=== PATIENT | male | born 1970 | race Caucasian/White ===

== ENCOUNTER 2021-08-10 23:07 | Emergency (ER) | payer OTHER, SELFPAY ==
--- NOTE | ~2021-08-10 | XR_ITS ---
EXAMINATION: XR ankle LT min 3V DATE: 08/10/2021 23:59 INDICATION: Left ankle pain. TECHNIQUE: 4 views of left ankle were obtained. COMPARISON: Left ankle radiographs 11/05/2019 FINDINGS: Bone alignment is normal. No fracture. Joint spaces are well maintained. There is an enthes ophyte at posterior aspect of calcaneal tuberosity. IMPRESSION: 1. No fracture. Reviewed, dictated and finalized at location A. IMPRESSION: 1. No fracture.
--- NOTE | ~2021-08-10 | XR_ITS ---
EXAMINATION: XR chest 1V portable DATE: 08/10/2021 23:34 INDICATION: Shortness of breath. TECHNIQUE: A single frontal view of the chest was obtained. COMPARISON: Chest radiograph 05/05/2012 FINDINGS: The chest demonstrates clear lungs without pneumonia, pleural effusion, or pneumothorax. Th e heart size is normal. IMPRESSION: 1. No acute cardiopulmonary disease. Reviewed, dictated and finalized at location A.
[2021-08-10 23:09] VITALS: BP 164/95; PULSE 89; RESP 28; TEMP 36.6; O2SAT 99
--- NOTE | 2021-08-10 23:13 | ECG_ITS ---
Measurements Intervals [place] Rate: 85 P: 46 KS: 116 QRS: 74 QRSD: 90 T: 74 QT: 371 QTc: 443 Interpretive Statements SINUS RHYTHM WITH SHORT [place] INTERVAL BASELINE ARTIFACT- V4 BORDERLINE ECG Electronically Signed On 08-11-2021 6:00:10 CDT by Taye Lake D.O.
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
[2021-08-10 23:33] VITALS: PULSE 89; RESP 14
[2021-08-10] MEDS: IPRATROPIUM BR 0.02% INH SOLN 0.5 MG/2.5 ML VIAL INHALATION (23:33)
[2021-08-10] MEDS: ALBUTEROL SULFATE NEB 2.5 MG/0.5 ML INH 5 MG INHALATION (23:33)
[2021-08-10 23:43] VITALS: PULSE 83; RESP 16
[2021-08-11 00:12] LABS: Basophils Percent Auto 0.4 % (0.2-1.2); Eosinophils Absolute Auto 0.3 K/mm3 (0-0.3); Eosinophils Percent Auto 3.6 % (0-4.4); Hemoglobin 14.7 g/dL (14.0-18.0); Immature Granulocyte Absolute 0.05 K/mm3 (0.00-0.031); Immature Granulocyte Percent A 0.7 % (0-0.5); Lymphocytes Absolute Auto 2.36 K/mm3 (0.9-3.2); Lymphocytes Percent Auto 34.5 % (18.3-44.2); Mean Corpuscular HGB Conc 33.4 g/dl (32-36); Mean Corpuscular Hemoglobin 32.5 pg (26-34); Mean Corpuscular Volume 97.1 fl (80-100); Mean Platelet Volume 9.4 fl (7.4-10.4); Monocytes Absolute Auto 0.8 K/mm3 (0.1-0.6); Monocytes Percent Auto 11.2 % (2.6-8.5); Neutrophils Absolute Auto 3.4 K/mm3 (1.3-6.7); Neutrophils Percent Auto 49.6 % (45.5-73.1); Platelet Count Result 208 k/mm3 (150-375); Red Blood Count 4.53 M/mm3 (4.6-6.20); Red Cell Distribution Width 12.4 % (11.5-14.5); White Blood Count 6.9 K/mm3 (4.5-10.0)
[2021-08-11 00:15] LABS: Anion Gap 5 mmol/L (8-16); Blood Urea Nitrogen 12 mg/dL (9-20); Calcium 8.8 mg/dL (8.4-10.2); Carbon Dioxide 31 mmol/L (22-30); Chloride 103 mmol/L (98-107); Estimated CRCL calculation 97 ml/min; Estimated Glomerular Filt Rate > 60; Glucose 116 mg/dL (65-110); Potassium 3.5 mmol/L (3.4-5.0); Sodium 139 mmol/L (137-145)
[2021-08-11 00:21] LABS: INR 0.9; Prothrombin Time 11.8 Seconds (11.1-14.7)
[2021-08-11 00:27] LABS: Troponin I < 0.012 ng/mL (0.000-0.034)
[2021-08-11] MEDS: LORazepam INJ (*CRX) 2 MG/ML VIAL 0.5 MG IM (00:31)
[2021-08-11] MEDS: ACETAMINOPHEN 500 MG TABLET 1000 MG PO (00:31)
[2021-08-11 04:14] VITALS: BP 131/97; PULSE 85; RESP 16; TEMP 36.6; O2SAT 98
[2021-08-11 06:08] LABS: Troponin I < 0.012 ng/mL (0.000-0.034)
== END 2021-08-11 04:15 | disposition home or self-care (01) ==
PROVIDERS: Emergency Medicine; Emergency Provider Emergency Medicine
DX: J44.1 Chronic obstructive pulmonary disease with (acute) exacerbation (principal); K21.9 Gastro-esophageal reflux disease without esophagitis; I10 Essential (primary) hypertension; Z86.19 Personal history of other infectious and parasitic diseases; G62.9 Polyneuropathy, unspecified; F17.200 Nicotine dependence, unspecified, uncomplicated; F32.A Depression, unspecified; F20.0 Paranoid schizophrenia; R94.31 Abnormal electrocardiogram [ECG] [EKG]
CPT/HCPCS: 36415; 71045; 73610; 80048; 84484; 85025; 85610; 85730; 93005; 94640; 96372; 99284; A9270; J2060

== ENCOUNTER 2023-01-09 11:32 | Inpatient (IN) | payer OTHER, SELFPAY ==
[2023-01-09] VITALS (7 sets, daily range): BP systolic 127–155; BP diastolic 78–118; PULSE 90–113; RESP 16–20; TEMP 36.3–36.7; O2SAT 94–98
--- NOTE | ~2023-01-09 | US_ITS ---
EXAMINATION: US venous doppler UE RT DATE: 01/09/2023 12:58 INDICATION: Right upper limb pain and swelling TECHNIQUE: Grayscale images without and with compression and Doppler images of the right upper extrem ity veins were obtained. COMPARISON: None. FINDINGS: The right internal jugular vein, subclavian vein, axillary vein, brachial vein, basilic vein, cephali c vein, radial vein, and ulnar vein are patent. Nonspecific 2.5 x 1.7 x 0.9 cm lenticular fluid colle ction within the musculature, likely triceps at the distal aspect of the posterior right upper arm. IMPRESSION: 1. Patent right upper extremity veins. No evidence of venous thrombosis. 2. 2.5 x 1.7 x 0.9 cm lenticular fluid collection within the distal right triceps muscle belly which could represent a small hematoma related to muscle strain, abscess in the appropriate clinical settin g or intramuscular ganglion cyst. Reviewed, dictated and finalized at location B. IMPRESSION: 1. Patent right upper extremity veins. No evidence of venous thrombosis. 2. 2.5 x 1.7 x 0.9 cm lenticular fluid collection within the distal right eddie ps muscle belly which could represent a small hematoma related to muscle strain , abscess in the appropriate clinical setting or intramuscular ganglion cyst.
--- NOTE | ~2023-01-09 | CT_ITS ---
CT scan of the right elbow CLINICAL HISTORY: Swelling, pain, history of infection after elbow injury TECHNIQUE: Following intravenous administration of 100 cc of Omnipaque 350 contrast material, axial i maging of the right upper extremity centered on the elbow was performed. Sagittal and coronal reforma tted images were constructed. Dose reduction technique was used on this scan by utilizing automated e xposure control and iterative reconstruction technique. The dose-length product (DLP) was 526.56 mGy- cm. Findings: No acute fracture or dislocation seen. Osseous alignment about the elbow joint is anatomic. There is a mature, well corticated osseous structure somewhat along the expected course of the dista l biceps tendon, measuring approximately 4.0 x 1.0 x 1.7 cm in size. No elbow joint effusion evident. There is enlargement and heterogeneous appearance of the distal triceps muscle belly, with heterogene ous areas of enhancement throughout. There is a probable small fluid collection within the distal mus acrlos belly measuring approximately 1.7 x 0.9 x 4.5 cm in extent (axial images 52-66, sagittal image 49 for example). There is extensive subcutaneous soft tissue edema about the posterior an lateral aspec ts of the elbow. Remaining musculature otherwise appears essentially unremarkable. IMPRESSION: Enlarged, heterogeneous enhancing appearance of the distal triceps muscle belly with 1.7 x 0.9 x 4.5 cm fluid collection within the distal muscle belly. Given history, findings suggest infectious myosit is with intramuscular abscess. Sterile posttraumatic change is a possible alternative consideration. MR would provide improved soft tissue contrast to delineate the findings, if clinically indicated. 4.0 x 1.0 x 1.7 cm osseous structure stone along the expected course of the distal biceps tendon. Thi s presumably represents mature, chronic myositis ossificans or other chronic heterotopic ossification . Reviewed, dictated and finalized at location M. IMPRESSION: Enlarged, heterogeneous enhancing appearance of the distal triceps muscle belly with 1.7 x 0.9 x 4.5 cm fluid collection within the distal muscle belly. Given history, findings suggest infectious myositis with intramuscular abscess. Ster ile posttraumatic change is a possible alternative consideration. MR would prov miki improved soft tissue contrast to delineate the findings, if clinically olivier cated. 4.0 x 1.0 x 1.7 cm osseous structure stone along the expected course of the dis anel biceps tendon. This presumably represents mature, chronic myositis ossifica ns or other chronic heterotopic ossification.
--- NOTE | ~2023-01-09 | US_ITS ---
EXAMINATION: US guide abscess drainage DATE: 01/09/2023 16:16 INDICATION: Right upper arm abscess. TECHNIQUE: The procedure including the risks, benefits, and alternatives was discussed with the patie nt. Risks discussed included bleeding and infection. The patient understood the risks and agreed to chicho wilson. The skin overlying the right upper arm was prepped and draped in usual sterile fashion. Anes thetic was administered with 1% lidocaine subcutaneously. An 18 gauge needle was then used to aspira te fluid under continuous sonographic guidance. The entry site was cleaned and dressed. There were n o immediate complications. FINDINGS: Ultrasound images demonstrate the needle in a 2.3 x 1.3 x 2.1 fluid collection in the eddie ps muscle. IMPRESSION: 1. Ultrasound-guided needle aspiration of a fluid collection in the right triceps muscle yielding 4 m L bloody fluid. Reviewed, dictated and finalized at location A. IMPRESSION: 1. Ultrasound-guided needle aspiration of a fluid collection in the right eddie ps muscle yielding 4 mL bloody fluid.
[2023-01-09 12:39] LABS: Basophils Percent Auto 0.3 % (0.2-1.2); Eosinophils Absolute Auto 0.1 K/mm3 (0-0.3); Eosinophils Percent Auto 0.9 % (0-4.4); Hematocrit 46.4 % (42.0-52.0); Hemoglobin 15.4 g/dL (14.0-18.0); Immature Granulocyte Absolute 0.04 K/mm3 (0.00-0.031); Immature Granulocyte Percent A 0.4 % (0-0.5); Lymphocytes Percent Auto 15.6 % (18.3-44.2); Mean Corpuscular HGB Conc 33.2 g/dl (32-36); Mean Corpuscular Hemoglobin 31.7 pg (26-34); Mean Corpuscular Volume 95.5 fl (80-100); Mean Platelet Volume 9.2 fl (7.4-10.4); Monocytes Absolute Auto 0.9 K/mm3 (0.1-0.6); Monocytes Percent Auto 8.5 % (2.6-8.5); Neutrophils Absolute Auto 8.1 K/mm3 (1.3-6.7); Neutrophils Percent Auto 74.3 % (45.5-73.1); Platelet Count Result 257 k/mm3 (150-375); Red Blood Count 4.86 M/mm3 (4.6-6.20); Red Cell Distribution Width 12.2 % (11.5-14.5); White Blood Count 10.9 K/mm3 (4.5-10.0)
[2023-01-09 12:46] LABS: Anion Gap 5 mmol/L (8-16); Blood Urea Nitrogen 8 mg/dL (9-20); Calcium 8.6 mg/dL (8.4-10.2); Carbon Dioxide 32 mmol/L (22-30); Chloride 101 mmol/L (98-107); Estimated CRCL calculation 114 ml/min; Estimated Glomerular Filt Rate > 60; Glucose 117 mg/dL (65-110); Potassium 3.9 mmol/L (3.4-5.0); Sodium 138 mmol/L (137-145)
[2023-01-09 12:47] LABS: Lactic Acid Reflex 1.3 mmol/L (0.7-2.0)
[2023-01-09 12:54] LABS: INR 1.1; Prothrombin Time 14.2 Seconds (11.1-14.7)
[2023-01-09 12:55] LABS: Partial Thromboplastin Time 31.2 SECONDS (22.3-36.8)
[2023-01-09] MEDS: MORPHINE SULFATE (*CRX) 4 MG/ML INJ IV PUSH (13:06)
--- NOTE | 2023-01-09 13:11 | ED.EXTPRO ---
HPI - Extremity Problem General Chief complaint: Extremity Problem,Nontraumatic Stated complaint: Right Arm Swelling Time Seen by Provider: 01/09/23 11:57 History of Present Illness HPI Narrative: 52-year-old male with history of elbow injury and subsequent infection requiring antibiotics about a year ago presents with pain and swelling to his right arm that feels similar to the last time when he had an infection. Denies any recent trauma or heavy lifting, has been staying at hotels and unsure if he may have been bitten by something. No fevers or chills. No nausea or vomiting. Also states he might have a piece of rock/glass to bottom of right foot for months. Related Data Home Medications Medication Instructions Recorded Confirmed albuterol sulfate 2.5 mg/3 mL 11/05/19 (0.083 %) solution for nebulization fluticasone 232 mcg-salmeterol 14 inhalation 11/05/19 mcg/actuation breath activated powdr montelukast 10 mg tablet mg 11/05/19 quetiapine 25 mg tablet 11/05/19 sertraline 25 mg tablet mg 11/05/19 Allergies Allergy/AdvReac Type Severity Reaction Status Date / Time aspirin AdvReac Other Verified 01/09/23 12:02 PALAUAN MEASLES INJECTION Allergy Mild Unknown Uncoded 01/09/23 11:32 BEE STINGS Allergy Unknown Hives Uncoded 01/09/23 11:32 POISON AMBROCIO Allergy Unknown Itching Uncoded 01/09/23 11:32 Review of Systems Review of Systems: CONST: No fever. HEENT: No sore throat C/V: No chest pain RESP: No cough GI: No nausea or vomiting : No dysuria. M/S: Pain and swelling to right upper arm SKIN: No rash. NEURO: [No focal numbness or weakness] PSYCH: [No depression] [facility] Past Medical History Medical History Asthma Bilateral ankle fractures COPD (chronic obstructive pulmonary disease) Depression Fracture of lumbar vertebra GERD (gastroesophageal reflux disease) Hepatitis C Hernia HTN (hypertension) Paranoid schizophrenia Peripheral neuropathy Previous known suicide attempt Surgical History Surgical History History of surgery on arm Right hand Social History Social History Smoking status: Current every day smoker Gender identity (if verbalized by the patient): Male Exam Narrative: EXAMINATION OF ORGAN SYSTEMS/BODY AREAS: Constitutional: Vital signs per nursing GENERAL:[No acute distress, non-toxic appearing.] HEAD: Normal with no signs of head trauma. EYES: EOMI, conjunctiva normal ENT: Hearing grossly intact LUNGS: Nonlabored breathing. HEART: [Regular rate and rhythm] ABD: [Soft], [nontender to palpation] EXT: Normal range of motion, swelling and tenderness worse in the right upper arm with some induration. SKIN: [No rashes or lesions.] NEURO: [Alert and oriented x 3. No gross focal sensory or strength deficits.] PSYCH: Normal affect Course Vital Signs Vital signs: Vital Signs Temperature 98.1 F 01/09/23 11:49 Pulse Rate 97 01/09/23 11:49 Respiratory Rate 16 01/09/23 11:49 Blood Pressure 143/82 H 01/09/23 11:49 Pulse Oximetry 98 01/09/23 11:49 Oxygen Delivery Room Air 01/09/23 11:49 Temperature 98.1 F 01/09/23 11:49 Pulse Rate 97 01/09/23 11:49 Respiratory Rate 16 01/09/23 11:49 Blood Pressure 143/82 H 01/09/23 11:49 Pulse Oximetry 98 01/09/23 11:49 Oxygen Delivery Room Air 01/09/23 11:49 MDM - Extremity (Nontraumatic) MDM Narrative Medical decision making narrative: Patient presents here with swelling and pain in his right upper extremity, started a few days ago, denies any trauma, fevers or chills, he has had similar symptoms like this about a year ago when he had an infection in his arm after hurting his elbow. Vital signs stable here, on exam does have tenderness to entire RUE worst upper arm, with some induration, neurovascularly intact. I am concerned for possible in
[2023-01-09] MEDS: HYDROmorphone HCL INJ (*CRX) 1 MG/ML SYR IV PUSH ×2 (16:06→23:39)
--- NOTE | 2023-01-09 16:24 | PM.IMHP ---
H&P: HPI History of Present Illness Date/Time: 01/09/23 16:24 Chief Complaint: Swelling to right arm Narrative: This is a 52-year-old male patient who came to the emergency room with complaints of right elbow swelling. The patient stated that he fell and hurt his arm approximately a year ago but then it healed up. The patient was on antibiotics at that time. The patient presented to the emergency room today with right arm swelling that appears to be similar to his infection that he had 1 year ago. The patient has been staying at a hotel and is unsure if he was bitten by spider. No nausea vomiting. The patient stated he has not tried anything his symptoms. The patient had ultrasound-guided needle aspiration of fluid collection in the right tricuspid muscle yielding 4 mL of bloody fluid. Prior to that his upper extremity CT was read asnlarged, heterogeneous enhancing appearance of the distal triceps muscle belly with 1.7 x 0.9 x 4.5 cm fluid collection within the distal muscle belly. Given history, findings suggest infectious myositis with intramuscular abscess. Sterile posttraumatic change is a possible alternative consideration. MR would provide improved soft tissue contrast to delineate the findings, if clinically indicated. 4.0 x 1.0 x 1.7 cm osseous structure stone along the expected course of the distal biceps tendon. This presumably represents mature, chronic myositis ossificans or other chronic heterotopic ossification. Venous Doppler the upper extremity was read asPatent right upper extremity veins. No evidence of venous thrombosis. 2. 2.5 x 1.7 x 0.9 cm lenticular fluid collection within the distal right triceps muscle belly which could represent a small hematoma related to muscle strain, abscess in the appropriate clinical setting or intramuscular ganglion cyst. The patient was given morphine, Dilaudid and vancomycin in the emergency room. The patient was also complaining of wheezing and was given a nebulizer treatment. The patient is being admitted to observation status on the date of service of 01/09/2023. Review of Systems Review of Systems: All systems reviewed & are unremarkable except as noted in HPI and below Constitutional: Constitutional: Reports as per HPI and Reports no additional constitutional complaints Eyes: Eyes: Reports as per HPI and Reports no additional eye complaints ENT: Reports system reviewed and no additional complaints, except as documented and Reports Normal hearing present Cardiovascular: Cardiovascular: Reports no additional cardiovascular complaints Respiratory: Respiratory: Reports no additional respiratory complaints and Reports no additional respiratory complaints Gastrointestinal: Gastrointestinal: Reports as per HPI and Reports no additional gastrointestinal complaints Musculoskeletal: Musculoskeletal: Reports no additional musculoskeletal complaints Integumentary/Breasts: Skin/Breast: Reports system reviewed and no additional complaints, except as docu and Reports as per HPI Neurologic: Reports system reviewed and no additional complaints, except as documented, Reports as per HPI and Reports Normal hearing present Psychiatric: Psychiatric: Reports no additional psychiatric complaints and Reports as per HPI Endocrine: Endocrine: Reports no additional endocrine complaints Hematologic/Lymphatic: Hematologic/Lymphatic: Reports no additional hematologic/lymphatic complaints Allergic/Immunologic: Allergic/Immunologic: Reports no additional allergic/immunologic complaints [facility] Past Medical History Medical History (Updated 01/09/23 @ 19:34 by Jaye Sandy NP) Asthma Bilateral ankle fractures COPD (chronic obstructive pulmonary disease) Depression Fracture of lumbar vertebra GERD (gastroesophageal reflux disease) H/O retained foreign body fully removed Hepatitis C Hernia HTN (hypertension) Paranoid schizophrenia Peripheral neuropathy Previous known suicide attempt Surgical Hist
--- NOTE | 2023-01-09 16:51 | PCRCNOTE ---
pt refusing UPD stating he has too much going on and is too tired. MD informed of pt refusal.
[2023-01-09] MEDS: NICOTINE (*PBKC) 21 MG PATCH 1 PATCH TRANSDERM (18:07)
--- NOTE | 2023-01-09 18:22 | ADMGEN ---
This patient, Nader Molina, was admitted to [facility] Surg Room 331-01. Patient/family oriented to hospital policies and general routines including ID bracelet, bed and alarms, visiting hours, pain management, procedures, bathroom and other care routines, personal items, smoking policy, room service/diet, and visiting hours. Information on how to activate the Rapid Response Team has been discussed. Patient/Family are encouraged to report perceived risks to care and to ask questions if they do not understand what they are told or what they should do.
[2023-01-09] MEDS: MONTELUKAST SODIUM 10 MG TABLET PO (21:13)
[2023-01-09] MEDS: HYDROcodone/acetaminophen (*CRX) 7.5-325 MG TABLET 1 TAB PO (21:20)
[2023-01-09] MEDS: ALBUTEROL SULFATE NEB 2.5 MG/3 ML INH INHALATION (21:25)
[2023-01-09] MEDS: IPRATROPIUM BR 0.02% INH SOLN 0.5 MG/2.5 ML VIAL INHALATION (21:25)
[2023-01-10] VITALS (13 sets, daily range): BP systolic 116–126; BP diastolic 73–86; PULSE 75–86; RESP 16–22; TEMP 35.6–36.4; O2SAT 96–97; BMI 25.1
[2023-01-10] MEDS: ALBUTEROL SULFATE NEB 2.5 MG/3 ML INH INHALATION ×4 (03:01→21:22)
[2023-01-10] MEDS: IPRATROPIUM BR 0.02% INH SOLN 0.5 MG/2.5 ML VIAL INHALATION ×4 (03:02→21:22)
[2023-01-10] MEDS: HYDROmorphone HCL INJ (*CRX) 1 MG/ML SYR IV PUSH ×5 (04:58→22:10)
[2023-01-10 06:33] LABS: Basophils Percent Auto 0.3 % (0.2-1.2); Eosinophils Absolute Auto 0.2 K/mm3 (0-0.3); Eosinophils Percent Auto 1.3 % (0-4.4); Hematocrit 43.1 % (42.0-52.0); Hemoglobin 14.4 g/dL (14.0-18.0); Immature Granulocyte Absolute 0.04 K/mm3 (0.00-0.031); Immature Granulocyte Percent A 0.3 % (0-0.5); Lymphocytes Absolute Auto 2.33 K/mm3 (0.9-3.2); Lymphocytes Percent Auto 20.1 % (18.3-44.2); Mean Corpuscular HGB Conc 33.4 g/dl (32-36); Mean Corpuscular Hemoglobin 31.1 pg (26-34); Mean Corpuscular Volume 93.1 fl (80-100); Mean Platelet Volume 9.2 fl (7.4-10.4); Monocytes Absolute Auto 1.2 K/mm3 (0.1-0.6); Monocytes Percent Auto 9.9 % (2.6-8.5); Neutrophils Absolute Auto 7.9 K/mm3 (1.3-6.7); Neutrophils Percent Auto 68.1 % (45.5-73.1); Platelet Count Result 223 k/mm3 (150-375); Red Blood Count 4.63 M/mm3 (4.6-6.20); Red Cell Distribution Width 12.2 % (11.5-14.5); White Blood Count 11.6 K/mm3 (4.5-10.0)
[2023-01-10 06:45] LABS: Lactic Acid Reflex 0.9 mmol/L (0.7-2.0)
[2023-01-10 07:23] LABS: Alanine Aminotransferase 51 U/L (6-50); Albumin Level 3.4 g/dL (3.5-5.1); Alkaline Phosphatase 90 U/L (38-126); Anion Gap 8 mmol/L (8-16); Aspartate Amino Transferase 33 U/L (17-59); Bilirubin,Total 0.7 mg/dL (0.2-1.3); Blood Urea Nitrogen 9 mg/dL (9-20); Calcium 8.4 mg/dL (8.4-10.2); Carbon Dioxide 28 mmol/L (22-30); Chloride 99 mmol/L (98-107); Estimated CRCL calculation 114 ml/min; Estimated Glomerular Filt Rate > 60; Glucose 101 mg/dL (65-110); Magnesium 1.9 mg/dL (1.6-2.3); Potassium 3.6 mmol/L (3.4-5.0); Sodium 135 mmol/L (137-145)
[2023-01-10 08:23] LABS: Free T4 Free Thyroxine Reflex 1.32 ng/dL (0.78-2.19)
[2023-01-10] MEDS: SERTRALINE HCL 25 MG TABLET PO (08:43)
[2023-01-10] MEDS: ENOXAPARIN 40 MG/0.4 ML SYRINGE SUB-Q (08:43)
[2023-01-10 09:13] LABS: Total Triiodothyronine (T3) 1.34 NG/ML (0.97-1.69)
[2023-01-10] MEDS: HYDROcodone/acetaminophen (*CRX) 7.5-325 MG TABLET 1 TAB PO ×2 (16:39→20:57)
[2023-01-10 16:50] LABS: Erythrocyte Sedimentation Rate 50 mm/hr (0-20)
--- NOTE | 2023-01-10 16:50 | PM.CNOR ---
Assessment and Plan Assessment and plan (1) Abscess: Code(s): L02.91 - Cutaneous abscess, unspecified Status: Acute Assessment and Plan: Deep infection right upper arm in the triceps area. Small fluid collection noted on the CT scan, and involvement of the triceps musculature. Remote prior injury to the distal biceps tendon with focal heterotopic ossification. The patient gives a vague history of similar symptoms at that time. No recent history of trauma or inciting event. Ultrasound-guided aspirate revealed Gram-positive Staph cocci. Cultures pending. Swelling and pain is extending proximally and distally. Risk of progressive soft tissue infection that may require extensive surgical debridement. I recommend transfer to a tertiary care center. Discussed the case with the hospitalist. History of Present Illness HPI Consult date: 01/10/23 Chief complaint: RUE INFECTION Narrative: 52-year-old male complains of acute pain in the right arm. Admitted through the emergency room after aspiration. CT scan showed fluid collection and likely infection in the triceps muscle. History of biceps tendon injury. CT scan did show myositis ossificans along the tract of the distal biceps tendon. Review of Systems Review of Systems: All systems reviewed & are unremarkable except as noted in HPI and below PMFSH Past Medical History Medical History Asthma Bilateral ankle fractures COPD (chronic obstructive pulmonary disease) Depression Fracture of lumbar vertebra GERD (gastroesophageal reflux disease) H/O retained foreign body fully removed Hepatitis C Hernia HTN (hypertension) Paranoid schizophrenia Peripheral neuropathy Previous known suicide attempt Surgical History Surgical History History of surgery on arm Right hand Family History Family History Mother Heart disease Acute myocardial infarction Kidney failure Emphysema lung Social History Social History Social History: He continues to smoke 1 pack a cigarettes per day. no alcohol. Occasional marijuana . He currently lives in of hotel . He is single and has twin daughters. Code status full code Smoking status: Current every day smoker Substance use: current Substance use type: marijuana Lack of Transportation: YES Lack of Food: Often True Current Housing: I Do Not Have Housing Concerned About Future Housing: YES Difficulty Paying Gas/Electric Bills: YES Difficulty Paying for Meds: YES Currently Unemployed: YES Education: Decline to Answer Difficulty w/ Childcare or Family Care: No Gender identity (if verbalized by the patient): Male Spiritual care concerns: No Meds Home Medications and Allergies Home Medications Medication Instructions Recorded Confirmed Type albuterol sulfate 2.5 mg/3 mL 2.5 mg continuous nebulization QID 11/05/19 01/09/23 History (0.083 %) solution for nebulization fluticasone 232 mcg-salmeterol 14 2 inh inhalation BID 11/05/19 01/09/23 History mcg/actuation breath activated powdr montelukast 10 mg tablet 10 mg PO HS 11/05/19 01/09/23 History sertraline 25 mg tablet 25 mg PO DAILY 11/05/19 01/09/23 History albuterol sulfate 90 mcg/actuation 1 inhalation inhalation Q4-6H PRN 08/11/21 01/09/23 Rx breath activated powder shortness of breath or wheezing #1 inhaler,sensor ea Allergies Allergy/AdvReac Type Severity Reaction Status Date / Time aspirin AdvReac Other Verified 01/09/23 19:04 COMORAN MEASLES INJECTION Allergy Mild Unknown Uncoded 01/09/23 11:32 BEE STINGS Allergy Unknown Hives Uncoded 01/09/23 11:32 POISON AMBROCIO Allergy Unknown Itching Uncoded 01/09/23 11:32 Vital Signs Vital Signs - 24 hr 01/09/23 19:00 01/09/23 21:26 01/09
[2023-01-10 17:02] LABS: CRP 16.7 mg/dL (<1.0)
--- NOTE | 2023-01-10 17:54 | PM.IMPN ---
Progress Note: A&P Assessment and Plan (1) Abscess: Code(s): L02.91 - Cutaneous abscess, unspecified Status: Acute Assessment and Plan: The fluid collection was drained with a needle aspiration as per ultrasound and obtain 4 mL of blood. No abscess was noted on the MRI. Continue with vancomycin and broaden the coverage with cefepime. May consider surgical consult-Dr. Carnes examined the patient and MRI and feels this is more likely a cellulitis and is not in compartment syndrome at this time but is headed that direction. He will be out of town starting [facility] and the general surgery team report they do not typically manage upper extremity infections. Suggest transfer to orthopedic surgeon at a larger facility. Keep affected extremity elevated to reduce swelling. Monitor CRP and ESR levels. Initial ESR-50, CRP-16.7 Blood cultures pending Tailor antibiotics according to culture and sensitivities The [facility] was [facility] but did not say if he had MRSA in the past. Pt on the waitlist with [facility] (Dr. North accepting orthopedic surgeon and Dr. Macias accepting hospitalist) and [facility] (Dr. Holguin accepting hospitalist at [facility]). (2) COPD (chronic obstructive pulmonary disease): Code(s): J44.9 - Chronic obstructive pulmonary disease, unspecified Status: Acute Assessment and Plan: Continue with nebulizer treatments Patient was encouraged to stop smoking. The patient was given a nicotine patch Continue with Singulair (3) Depression: Code(s): F32.9 - Major depressive disorder, single episode, unspecified Status: Acute Assessment and Plan: Continue with Zoloft (4) HTN (hypertension): Code(s): I10 - Essential (primary) hypertension Status: Acute Assessment and Plan: Patient stated he no longer takes any blood pressure medication P.r.n. hydralazine (5) Paranoid schizophrenia: Code(s): F20.0 - Paranoid schizophrenia Status: Acute Assessment and Plan: Continue with home medications Subjective Date/time seen: 01/10/23 1120 Review of Systems Constitutional: Constitutional: Reports as per HPI Eyes: Eyes: Reports as per HPI and Reports no additional eye complaints ENT: Reports system reviewed and no additional complaints, except as documented Cardiovascular: Comments: Pt denies any CP, palpitations, lightheadedness, or edema Respiratory: Comments: Pt denies any SOB. c/o occasional cough that is nonproductive and his normal. States he is a current every day smoker. Gastrointestinal: Comments: Denies any nausea, vomiting, constipation, diarrhea, melena, or hematochezia or abdominal pain. Genitourinary: Comments: Denies any urinary frequency or dysuria. Denies any suprapubic discomfort or flank pain. Musculoskeletal: Musculoskeletal: Reports no additional musculoskeletal complaints and Reports as per HPI Comments: c/o pain 8/ to right upper arm and relates that today he isn't able to put his ponytail zamora in his hair because he cannot bend his elbow enough. Denies any numbness or tingling to the right hand or fingers. States he can feel the swelling going up into his right axilla. Neurologic: Reports system reviewed and no additional complaints, except as documented Psychiatric: Psychiatric: Reports no additional psychiatric complaints and Reports as per HPI Exam Const: General: no acute distress and uncomfortable Other: Pt is alert and oriented x 4 and appears in no acute distress, but does appear uncomfortable. HENMT: Face/Nose/Sinus: Normal nares present Mouth: Yes moist mucous membranes Eyes: General: appearance normal, both eyes and all related structures Sclera: sclerae normal Pupils: Equal, round and reactive pupils present EOM: EOMs intact bilaterally Neck: Neck: supple and no JVD Resp: Effort & Inspection: normal respiratory effort Auscultation: wheezes ex
[2023-01-10 18:01] LABS: SARS-CoV-2 RNA PCR Negative
[2023-01-10] MEDS: MONTELUKAST SODIUM 10 MG TABLET PO (20:58)
[2023-01-11] VITALS (9 sets, daily range): BP systolic 115–126; BP diastolic 69–76; PULSE 71–83; RESP 14–20; TEMP 35.8–36.2; O2SAT 94–98
[2023-01-11] MEDS: ALBUTEROL SULFATE NEB 2.5 MG/3 ML INH INHALATION ×3 (02:35→20:16)
[2023-01-11] MEDS: IPRATROPIUM BR 0.02% INH SOLN 0.5 MG/2.5 ML VIAL INHALATION ×3 (02:35→20:16)
[2023-01-11] MEDS: HYDROmorphone HCL INJ (*CRX) 1 MG/ML SYR IV PUSH ×6 (02:54→21:05)
[2023-01-11 03:21] LABS: Basophils Percent Auto 0.2 % (0.2-1.2); Eosinophils Absolute Auto 0.2 K/mm3 (0-0.3); Eosinophils Percent Auto 1.9 % (0-4.4); Hematocrit 43.2 % (42.0-52.0); Hemoglobin 14.6 g/dL (14.0-18.0); Immature Granulocyte Absolute 0.04 K/mm3 (0.00-0.031); Immature Granulocyte Percent A 0.4 % (0-0.5); Lymphocytes Absolute Auto 2.23 K/mm3 (0.9-3.2); Mean Corpuscular HGB Conc 33.8 g/dl (32-36); Mean Corpuscular Hemoglobin 31.4 pg (26-34); Mean Corpuscular Volume 92.9 fl (80-100); Monocytes Absolute Auto 0.7 K/mm3 (0.1-0.6); Monocytes Percent Auto 8.3 % (2.6-8.5); Neutrophils Absolute Auto 5.7 K/mm3 (1.3-6.7); Neutrophils Percent Auto 64.2 % (45.5-73.1); Platelet Count Result 264 k/mm3 (150-375); Red Blood Count 4.65 M/mm3 (4.6-6.20); White Blood Count 8.9 K/mm3 (4.5-10.0)
[2023-01-11 04:08] LABS: Anion Gap 4 mmol/L (8-16); Blood Urea Nitrogen 12 mg/dL (9-20); CRP 15.9 mg/dL (<1.0); Calcium 8.8 mg/dL (8.4-10.2); Carbon Dioxide 32 mmol/L (22-30); Chloride 99 mmol/L (98-107); Estimated CRCL calculation 99 ml/min; Estimated Glomerular Filt Rate > 60; Glucose 104 mg/dL (65-110); Potassium 3.8 mmol/L (3.4-5.0); Sodium 135 mmol/L (137-145)
[2023-01-11 04:17] LABS: Vancomycin Trough 8.5 ug/mL (10.0-20.0)
[2023-01-11 04:39] LABS: Erythrocyte Sedimentation Rate 38 mm/hr (0-20)
[2023-01-11] MEDS: HYDROcodone/acetaminophen (*CRX) 7.5-325 MG TABLET 1 TAB PO ×3 (05:23→22:32)
[2023-01-11] MEDS: NICOTINE (*PBKC) 21 MG PATCH 1 PATCH TRANSDERM (09:09)
[2023-01-11] MEDS: SERTRALINE HCL 25 MG TABLET PO (09:09)
[2023-01-11] MEDS: ENOXAPARIN 40 MG/0.4 ML SYRINGE SUB-Q (09:09)
--- NOTE | 2023-01-11 17:49 | PM.IMPN ---
Progress Note: A&P Assessment and Plan (1) Abscess: Code(s): L02.91 - Cutaneous abscess, unspecified Status: Acute Assessment and Plan: The fluid collection was drained with a needle aspiration as per ultrasound and obtain 4 mL of blood. No abscess was noted on the MRI. Continue with vancomycin and broaden the coverage with cefepime. May consider surgical consult-Dr. Carnes examined the patient and MRI and feels this is more likely a cellulitis and is not in compartment syndrome at this time but is headed that direction. He will be out of town starting [facility] and the general surgery team report they do not typically manage upper extremity infections. Suggest transfer to orthopedic surgeon at a larger facility. Keep affected extremity elevated to reduce swelling. Monitor CRP and ESR levels. Initial ESR-was 50 yesterday and down to 38 today, CRP-was 16.7 yesterday and down to 15.9 today. Covid swab negative Blood cultures pending Tailor antibiotics according to culture and sensitivities-Returned showing heavy growth of staph aureus. Should have ample coverage with current antibiotics and can downgrade once symptoms start to improve. The patient was recently [facility] from [facility] but did not say if he had MRSA in the past. Pt on the waitlist with [facility] (Dr. North accepting orthopedic surgeon and Dr. Macias accepting hospitalist) and [facility] (Dr. Holguin accepting hospitalist at [facility]). Both [facility] and [facility] have called each shift for update on patient status and reconfirm he is on the wait list but no beds available yet. (2) COPD (chronic obstructive pulmonary disease): Code(s): J44.9 - Chronic obstructive pulmonary disease, unspecified Status: Acute Assessment and Plan: Continue with nebulizer treatments Patient was encouraged to stop smoking. The patient was given a nicotine patch Continue with Singulair (3) Depression: Code(s): F32.9 - Major depressive disorder, single episode, unspecified Status: Acute Assessment and Plan: Continue with Zoloft (4) HTN (hypertension): Code(s): I10 - Essential (primary) hypertension Status: Acute Assessment and Plan: Patient stated he no longer takes any blood pressure medication P.r.n. hydralazine (5) Paranoid schizophrenia: Code(s): F20.0 - Paranoid schizophrenia Status: Acute Assessment and Plan: Continue with home medications Subjective Date/time seen: 01/11/23 4675 Review of Systems Review of Systems: All systems reviewed & are unremarkable except as noted in HPI and below Musculoskeletal: Musculoskeletal: Reports arthralgias (right elbow) and Reports stiffness (generalized upper back/neck) Exam Const: General: no acute distress and uncomfortable Other: Pt is alert and oriented x 4 and appears in no acute distress, but does appear uncomfortable. HENMT: Face/Nose/Sinus: Normal nares present Mouth: Yes moist mucous membranes Eyes: General: appearance normal, both eyes and all related structures Sclera: sclerae normal Pupils: Equal, round and reactive pupils present EOM: EOMs intact bilaterally Neck: Neck: supple and no JVD Resp: Effort & Inspection: normal respiratory effort Auscultation: wheezes expiratory wheezes, inspiratory wheezes and scattered wheezes Other: Pt appears in no acute respiratory distress. Able to speak in complete sentences without difficulty. No use of accessory muscles noted. Lung sounds reveal inspiratory/expiratory wheezing scattered. Cardio: Rate: regular rate Rhythm: regular rhythm Other: No heart murmur, gallop or rub appreciated GI: Other: Abdomen soft, non distended, nontender to palpation with bowel sounds present x 4 quadrants. Skin: General skin exam: normal color, no rashes or lesions noted and erythema (Right posterior upper arm mild erythema. Edema mid forearm to mid upper arm) Neuro: Cranial nerves: Yes Equal
[2023-01-11] MEDS: MONTELUKAST SODIUM 10 MG TABLET PO (21:05)
[2023-01-12] MEDS: HYDROmorphone HCL INJ (*CRX) 1 MG/ML SYR IV PUSH ×7 (00:27→23:17)
[2023-01-12 01:01] VITALS: PULSE 75; RESP 16
[2023-01-12] MEDS: ALBUTEROL SULFATE NEB 2.5 MG/3 ML INH INHALATION ×3 (01:04→09:30)
[2023-01-12] MEDS: IPRATROPIUM BR 0.02% INH SOLN 0.5 MG/2.5 ML VIAL INHALATION ×3 (01:04→09:30)
[2023-01-12 01:12] VITALS: PULSE 69; RESP 16
[2023-01-12] MEDS: HYDROcodone/acetaminophen (*CRX) 7.5-325 MG TABLET 1 TAB PO ×3 (03:28→20:30)
[2023-01-12 05:39] LABS: Basophils Percent Auto 0.4 % (0.2-1.2); Eosinophils Absolute Auto 0.3 K/mm3 (0-0.3); Hemoglobin 13.5 g/dL (14.0-18.0); Immature Granulocyte Absolute 0.05 K/mm3 (0.00-0.031); Immature Granulocyte Percent A 0.7 % (0-0.5); Lymphocytes Absolute Auto 1.66 K/mm3 (0.9-3.2); Lymphocytes Percent Auto 23.7 % (18.3-44.2); Mean Corpuscular HGB Conc 33.8 g/dl (32-36); Mean Corpuscular Hemoglobin 31.3 pg (26-34); Mean Corpuscular Volume 92.8 fl (80-100); Mean Platelet Volume 8.9 fl (7.4-10.4); Monocytes Absolute Auto 0.7 K/mm3 (0.1-0.6); Monocytes Percent Auto 9.4 % (2.6-8.5); Neutrophils Absolute Auto 4.3 K/mm3 (1.3-6.7); Neutrophils Percent Auto 61.8 % (45.5-73.1); Platelet Count Result 251 k/mm3 (150-375); Red Blood Count 4.31 M/mm3 (4.6-6.20)
[2023-01-12 06:00] VITALS: BP 105/66; PULSE 72; RESP 16; TEMP 35.9; O2SAT 95
[2023-01-12 06:06] LABS: Anion Gap 4 mmol/L (8-16); Blood Urea Nitrogen 9 mg/dL (9-20); CRP 7.9 mg/dL (<1.0); Calcium 8.8 mg/dL (8.4-10.2); Carbon Dioxide 30 mmol/L (22-30); Chloride 101 mmol/L (98-107); Estimated CRCL calculation 99 ml/min; Estimated Glomerular Filt Rate > 60; Glucose 111 mg/dL (65-110); Potassium 4.2 mmol/L (3.4-5.0); Sodium 135 mmol/L (137-145)
[2023-01-12 06:21] LABS: Vancomycin Trough 16.8 ug/mL (10.0-20.0)
[2023-01-12 09:03] VITALS: PULSE 68; RESP 18; O2SAT 95
[2023-01-12] MEDS: ENOXAPARIN 40 MG/0.4 ML SYRINGE SUB-Q (09:03)
[2023-01-12] MEDS: NICOTINE (*PBKC) 21 MG PATCH 1 PATCH TRANSDERM (09:04)
[2023-01-12] MEDS: SERTRALINE HCL 25 MG TABLET PO (09:05)
[2023-01-12 11:31] LABS: Erythrocyte Sedimentation Rate 54 mm/hr (0-20)
[2023-01-12] MEDS: OXACILLIN SODIUM 2 GM in SODIUM CHLORIDE 0.9% IV 100 ML IVPB ×3 (12:17→23:16)
[2023-01-12 14:00] VITALS: BP 127/75; PULSE 89; RESP 16; TEMP 36.4; O2SAT 93
--- NOTE | 2023-01-12 16:55 | PCRCNOTE ---
Window of time for administration has passed. See next scheduled administration.
--- NOTE | 2023-01-12 17:21 | PM.IMPN ---
Progress Note: A&P Assessment and Plan (1) Abscess: Code(s): L02.91 - Cutaneous abscess, unspecified Status: Acute Assessment and Plan: The fluid collection was drained with a needle aspiration as per ultrasound and obtain 4 mL of blood. No abscess was noted on the MRI. Continue with vancomycin and broaden the coverage with cefepime. May consider surgical consult-Dr. Carnes examined the patient and MRI and feels this is more likely a cellulitis and is not in compartment syndrome at this time but is headed that direction. He will be out of town starting [facility] and the general surgery team report they do not typically manage upper extremity infections. Suggest transfer to orthopedic surgeon at a larger facility. Keep affected extremity elevated to reduce swelling. Monitor CRP and ESR levels. Initial ESR-was 50 yesterday and down to 38 today, CRP-was 16.7 yesterday and down to 15.9 today. Covid swab negative Blood cultures pending Tailor antibiotics according to culture and sensitivities-Returned showing heavy growth of staph aureus. Should have ample coverage with current antibiotics and can downgrade once symptoms start to improve. The patient was recently released from [facility] but did not say if he had MRSA in the past. Pt on the waitlist with [facility] (Dr. North accepting orthopedic surgeon and Dr. Macias accepting hospitalist) and [facility] (Dr. Holguin accepting hospitalist at [facility]). Both [facility] and [facility] have called each shift for update on patient status and reconfirm he is on the wait list but no beds available yet. (2) COPD (chronic obstructive pulmonary disease): Code(s): J44.9 - Chronic obstructive pulmonary disease, unspecified Status: Acute Assessment and Plan: Continue with nebulizer treatments Patient was encouraged to stop smoking. The patient was given a nicotine patch Continue with Singulair (3) Depression: Code(s): F32.9 - Major depressive disorder, single episode, unspecified Status: Acute Assessment and Plan: Continue with Zoloft (4) HTN (hypertension): Code(s): I10 - Essential (primary) hypertension Status: Acute Assessment and Plan: Patient stated he no longer takes any blood pressure medication P.r.n. hydralazine (5) Paranoid schizophrenia: Code(s): F20.0 - Paranoid schizophrenia Status: Acute Assessment and Plan: Continue with home medications Subjective Date/time seen: 01/12/23 17:21 Interval history: 52yo male with HTN, schizophrenia, HepC, COPD and hx of rt elbow injury here for right arm pain and found to have right triceps intramuscular abscess. Objective Data Vital Signs Vital Signs: Vital Signs - 24 hr 01/11/23 20:13 01/11/23 20:13 01/11/23 22:00 Temperature 96.4 F L Pulse Rate 74 82 Respiratory Rate 20 14 Blood Pressure 115/69 Pulse Oximetry 94 95 Oxygen Delivery Room Air 01/11/23 20:00 01/12/23 01:01 01/12/23 01:12 Temperature Pulse Rate 75 69 Respiratory Rate 16 16 Blood Pressure Pulse Oximetry Oxygen Delivery Room Air 01/12/23 06:00 01/12/23 09:03 01/12/23 09:03 Temperature 96.7 F L Pulse Rate 72 68 Respiratory Rate 16 18 Blood Pressure 105/66 Pulse Oximetry 95 95 Oxygen Delivery Room Air 01/12/23 09:05 01/12/23 14:00 Temperature 97.5 F L Pulse Rate 89 Respiratory Rate 16 Blood Pressure 127/75 Pulse Oximetry 93 Oxygen Delivery Room Air Intake/Output Intake/Output: Intake & Output 01/09/23 01/10/23 01/11/23 01/12/23 23:59 23:59 23:59 23:59 Intake Total 1700 2600 1140 Output Total 0 Balance 1700 2600 1140 Meds/Results Medications: Active Medications Generic Name Dose Route Start Last Admin Trade Name Freq PRN Reason Stop Dose Admin Hydrocodone Bitart/Acetaminophen 1 tab 01/09/23 19:57 01/12/23 09:16 Hydrocodone/Acetaminophen (*Crx) 7.5-325 Mg Tablet PO 1 tab Q4H P
--- NOTE | 2023-01-12 18:11 | PM.TDS ---
Transfer Discharge Sum: Prov Provider Date of admission: 01/11/23 09:45 Primary care physician: BRYAN GONCALVES Admitting clinician: Neymar Anthony MD Consults: 01/09/23 15:13 Consult to Physician Routine Comment: Consulting Provider: Roanld Conway Reason for consultation: PALLAVI funk Has provider been notified: Yes DS: Admitting Diagnosis Discharge Date 01/12/23 Admitting Diagnosis Arm pain DS: Discharge Diagnosis Discharge Diagnosis (1) Abscess: Code(s): L02.91 - Cutaneous abscess, unspecified Status: Acute (2) COPD (chronic obstructive pulmonary disease): Code(s): J44.9 - Chronic obstructive pulmonary disease, unspecified Status: Acute (3) Depression: Code(s): F32.9 - Major depressive disorder, single episode, unspecified Status: Acute (4) HTN (hypertension): Code(s): I10 - Essential (primary) hypertension Status: Acute (5) Paranoid schizophrenia: Code(s): F20.0 - Paranoid schizophrenia Status: Acute (6) Myositis: Code(s): M60.9 - Myositis, unspecified Status: Acute Transfer Discharge Sum: Med Medications Active and Home Medications: Home Medications albuterol sulfate 2.5 mg/3 mL (0.083 %) solution for nebulization 2.5 mg continuous nebulization QID 11/05/19 [History Confirmed 01/09/23] fluticasone 232 mcg-salmeterol 14 mcg/actuation breath activated powdr 2 inh inhalation BID 11/05/19 [History Confirmed 01/09/23] montelukast 10 mg tablet 10 mg PO HS 11/05/19 [History Confirmed 01/09/23] sertraline 25 mg tablet 25 mg PO DAILY 11/05/19 [History Confirmed 01/09/23] albuterol sulfate 90 mcg/actuation breath activated powder inhaler,sensor 1 inhalation inhalation Q4-6H PRN shortness of breath or wheezing #1 ea 08/11/21 [Rx Confirmed 01/09/23] Active Medications Hydrocodone Bitart/Acetaminophen (Hydrocodone/Acetaminophen (*Crx) 7.5-325 Mg Tablet) 1 tab PO Q4H PRN PRN Reason: Pain Rated 4-6 Last Admin: 03/18/23 09:16 Dose: 1 tab Albuterol (Albuterol Sulfate Neb 2.5 Mg/3 Ml Inh) 2.5 mg INHALATION Q6HRT [facility] Last Admin: 01/12/23 16:53 Dose: Not Given Enoxaparin Sodium (Enoxaparin 40 Mg/0.4 Ml Syringe) 40 mg SUB-Q DAILY [facility] Last Admin: 01/12/23 09:03 Dose: 40 mg Hydralazine HCl (Hydralazine Hcl 20 Mg/Ml Vial) 10 mg IV PUSH Q8H PRN PRN Reason: Blood Pressure - High Hydromorphone HCl (Hydromorphone Hcl Inj (*Crx) 1 Mg/Ml Syr) 1 mg IV PUSH Q3H PRN PRN Reason: Pain Rated 7-10 Last Admin: 01/12/23 16:50 Dose: 1 mg Oxacillin Sodium 2 gm/ Sodium (Chloride) 100 mls @ 200 mls/hr IVPB Q4HR [facility] Last Admin: 01/12/23 16:50 Dose: 200 mls/hr Ipratropium [place] (Ipratropium Br 0.02% Inh Soln 0.5 Mg/2.5 Ml Vial) 0.5 mg INHALATION Q6HRT [facility] Last Admin: 01/12/23 16:53 Dose: Not Given Montelukast Sodium (Montelukast Sodium 10 Mg Tablet) 10 mg PO HS [facility] Last Admin: 01/11/23 21:05 Dose: 10 mg Nicotine (Nicotine (*Pbkc) 21 Mg Patch) 1 patch TRANSDERM QAM [facility] Last Admin: 01/12/23 09:04 Dose: 1 patch Sertraline HCl (Sertraline Hcl 25 Mg Tablet) 25 mg PO DAILY [facility] Last Admin: 01/12/23 09:05 Dose: 25 mg Transfer Discharge Sum: Hosp Hospital Course Hospital course: 52yo male with HTN, schizophrenia, HepC, COPD and hx of rt elbow injury here for right arm pain and found to have right triceps intramuscular abscess. Please see H&P for details. RUE US showing no DVT but showed a 2.5cm fluid collection within the right triceps muscle. A CT Rt UE showing a 4.5cm heterogeneous fluid collection in the distal triceps muscle. 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 The patient had US guided needle aspiration with removal of 4 mL of bloody fluid. No MRI obtained. Started on vancomycin and broaden the coverage with cefepime. Ortho was consulted. No fevers. WBC 11.6 before normalizing. CRP to 54. Abscess culture and sensitivities returned showing
[2023-01-12] MEDS: MONTELUKAST SODIUM 10 MG TABLET PO (20:34)
[2023-01-12 22:00] VITALS: BP 135/83; PULSE 77; RESP 14; TEMP 35.7; O2SAT 96
[2023-01-13 00:14] VITALS: O2SAT 97
== END 2023-01-13 01:00 | disposition short-term general hospital (02) | DRG 317 ==
LOC: ANHED 16:03 → ANH2MED 17:28 → ANH3MEDSUR 17:48
PROVIDERS: Nurse Practitioner; Nurse Practitioner Family; Admitting Provider Internal Medicine; Emergency Provider Emergency Medicine; Visit Provider Internal Medicine
DX: M60.021 Infective myositis, right upper arm (principal); B95.61 Methicillin susceptible Staphylococcus aureus infection as the cause of diseases classified elsewhere; F20.0 Paranoid schizophrenia; Z20.822 Contact with and (suspected) exposure to COVID-19; F32.A Depression, unspecified; F32.9 Major depressive disorder, single episode, unspecified; J44.9 Chronic obstructive pulmonary disease, unspecified; I10 Essential (primary) hypertension; K21.9 Gastro-esophageal reflux disease without esophagitis; G62.9 Polyneuropathy, unspecified; Z86.19 Personal history of other infectious and parasitic diseases
CPT/HCPCS: 10160; 36415; 73201; 76942; 80048; 80053; 80202; 83605; 83735; 84439; 84443; 84480; 85025; 85610; 85652; 85730; 86140; 87040; 87070; 87075; 87147; 87181; 87186; 87205; 93971; 94640; 96365; 96366; 96367; 96372; 96374; 96375; 96376; 99285; A9270; G0378; J0692; J1170; J1650; J2270; J2700; J3370; Q9967; U0003; U0005

== ENCOUNTER 2023-02-01 08:01 | Emergency (ER) | payer OTHER, SELFPAY ==
--- NOTE | ~2023-02-01 | XR_ITS ---
EXAMINATION: XR ankle RT min 3V DATE: 02/01/2023 08:29 INDICATION: Right ankle pain post injury 2 days prior TECHNIQUE: Anteroposterior, oblique, mortise, and lateral views of the right ankle were obtained. COMPARISON: None. FINDINGS: Nondisplaced oblique fracture through the distal fibula with a fracture plane exiting medially at the level of the tibiotalar joint. No other fracture identified. Specifically the medial and posterior malleoli as well as the talar dome are intact. Ankle mortise remains congruent. Soft tissue swelling overlying the lateral malleolus. IMPRESSION: 1. Nondisplaced oblique fracture of the distal left fibula consistent with a Dominguez type B injury altagracia tere. Reviewed, dictated and finalized at location A. IMPRESSION: 1. Nondisplaced oblique fracture of the distal left fibula consistent with a We tony type B injury pattern.
[2023-02-01 08:06] VITALS: BP 142/105; PULSE 106; RESP 16; TEMP 36.8; O2SAT 98
[2023-02-01] MEDS: HYDROcodone/acetaminophen (*CRX) 5-325 MG TABLET 1 TAB PO (09:03)
[2023-02-01] MEDS: CYCLOBENZAPRINE HCL 10 MG TABLET PO (09:03)
--- NOTE | 2023-02-01 09:03 | ED.GENADULT ---
HPI - General Adult General Chief complaint: Extremity Injury, Lower Stated complaint: Ankle Injury Time Seen by Provider: 02/01/23 08:51 History of Present Illness HPI narrative: 52-year-old male presented the emergency department for evaluation of an injury to his right ankle. Patient states on Saturday he tripped over a curb. Patient states he has had difficulty with weightbearing. Patient denies any other pain or injury. Related Data Home Medications Medication Instructions Recorded Confirmed albuterol sulfate 2.5 mg/3 mL 2.5 mg continuous nebulization QID 11/05/19 01/09/23 (0.083 %) solution for nebulization fluticasone 232 mcg-salmeterol 14 2 inh inhalation BID 11/05/19 01/09/23 mcg/actuation breath activated powdr montelukast 10 mg tablet 10 mg PO HS 11/05/19 01/09/23 sertraline 25 mg tablet 25 mg PO DAILY 11/05/19 01/09/23 Allergies Allergy/AdvReac Type Severity Reaction Status Date / Time aspirin AdvReac Other Verified 02/01/23 08:33 SCOTTISH MEASLES INJECTION Allergy Mild Unknown Uncoded 02/01/23 08:33 BEE STINGS Allergy Unknown Hives Uncoded 02/01/23 08:33 POISON AMBROCIO Allergy Unknown Itching Uncoded 02/01/23 08:33 Review of Systems Review of Systems: All systems reviewed & are unremarkable except as noted in HPI and below PMFSH Past Medical History Medical History Asthma Bilateral ankle fractures COPD (chronic obstructive pulmonary disease) Depression Fracture of lumbar vertebra GERD (gastroesophageal reflux disease) H/O retained foreign body fully removed Hepatitis C Hernia HTN (hypertension) Paranoid schizophrenia Peripheral neuropathy Previous known suicide attempt Surgical History Surgical History History of surgery on arm Right hand Family History Family History Mother Heart disease Acute myocardial infarction Kidney failure Emphysema lung Social History Social History Social History: He continues to smoke 1 pack a cigarettes per day. no alcohol. Occasional marijuana . He currently lives in of the [facility] . He is single and has twin daughters. Code status full code Smoking status: Current every day smoker Substance use: current Substance use type: marijuana Lack of Transportation: YES Lack of Food: Often True Current Housing: I Do Not Have Housing Concerned About Future Housing: YES Difficulty Paying Gas/Electric Bills: YES Difficulty Paying for Meds: YES Currently Unemployed: YES Education: Decline to Answer Difficulty w/ Childcare or Family Care: No Gender identity (if verbalized by the patient): Male Spiritual care concerns: No Exam Narrative: APPEARANCE: Well appearing, no pain, no distress, well-nourished. HEAD: normocephalic, atraumatic. EYES: PERRLA/EOMI, conjunctivae clear. NOSE: Normal no drainage NECK: Supple. No adenopathy, no masses. RESPIRATORY: Airway patent, respirations nonlabored. Clear to auscultation bilaterally, no rales, rhonchi, wheezing. CARDIOVASCULAR: Regular rate and rhythm without murmurs rubs or gallops. ABDOMINAL: Soft, nontender, nondistended, normal bowel sounds MUSCULOSKELETAL: Moves all extremities. Right ankle has localized edema and ecchymosis. Tender to palpation. NEURO: Alert. Cranial nerves II through XII intact. SKIN: Warm, dry. Normal Color Course Course Emergency Course: 52-year-old male presented to ED for right ankle pain. Patient does have a fibular fracture. Patient was updated on results of the x-rays. Patient was placed in a posterior short leg splint and provided crutches for nonweightbearing. Patient was treated with [place] and Flexeril for pain control. Patient states he is unable to weight-bear on crutches due to balance issues. Patient was provided cr
== END 2023-02-01 10:53 | disposition home or self-care (01) ==
PROVIDERS: Emergency Provider Emergency Medicine; PCP Internal Medicine Hematology & Oncology
DX: S82.831A Other fracture of upper and lower end of right fibula, initial encounter for closed fracture (principal); J44.9 Chronic obstructive pulmonary disease, unspecified; I10 Essential (primary) hypertension; K21.9 Gastro-esophageal reflux disease without esophagitis; G62.9 Polyneuropathy, unspecified; F32.A Depression, unspecified; F20.0 Paranoid schizophrenia; F17.210 Nicotine dependence, cigarettes, uncomplicated; W10.1XXA Fall (on)(from) sidewalk curb, initial encounter
CPT/HCPCS: 29515; 73610; 99283; 99284; A9270

== ENCOUNTER 2023-02-25 00:44 | Emergency (ER) | payer OTHER, SELFPAY ==
--- NOTE | ~2023-02-25 | CT_ITS ---
Clinical Indication: Chest pain CT Scan of the Chest with Contrast: Technique: Contiguous sections were acquired throughout the chest after intravenous administration of 100 cc of Omnipaque 350. Dose reduction technique was used on this scan by utilizing automated expos ure control and iterative reconstruction technique. The dose-length product (DLP) was 228.68 mGy-cm. Findings: There is no evidence of any significant mediastinal, hilar or axillary lymphadenopathy. There is no f illing defect in the pulmonary arterial tree to suggest pulmonary embolus. There is no evidence of ao rtic dissection or aneurysm. There is no evidence of pleural or pericardial effusion. Possible tiny loculated pneumothorax adjacent to rib fracture at the right seventh rib. The lungs are otherwise clear. No pulmonary nodules or infiltrates are noted. There is a transverse fracture through the lateral aspect of the right seventh rib. Possible addition al nondisplaced fracture of the lateral right eighth rib. There is subcutaneous emphysema along later al right chest wall region of the fractures. Images through the upper abdomen reveal no abnormalities . Impression: No evidence of pulmonary embolus, aortic dissection, or aortic aneurysm. Fractured third lateral right seventh rib, possibly the lateral right eighth rib as well, with associ ated adjacent subcutaneous emphysema. Possible associated tiny loculated pneumothorax adjacent to the right seventh rib fracture. Reviewed, dictated and finalized at location . Impression: No evidence of pulmonary embolus, aortic dissection, or aortic aneurysm. Fractured third lateral right seventh rib, possibly the lateral right eighth ri b as well, with associated adjacent subcutaneous emphysema. Possible associated tiny loculated pneumothorax adjacent to the right seventh r ib fracture.
--- NOTE | ~2023-02-25 | XR_ITS ---
Clinical Indication: Chest pain PA and lateral views of the chest: Comparison: 08/10/2021 Findings: The lungs are clear, without evidence of focal consolidation or pleural effusion. Cardiome diastinal silhouette is within normal limits. Suggesting a small amount of subcutaneous emphysema barrett ng the lower right chest wall region. Visualized osseous structures appear intact. Impression: Clear lungs. Suggestion of small amount of subcutaneous edema along the lower right chest wall region. Correlate f or posttraumatic or possibly infectious change. Reviewed, dictated and finalized at location M. Impression: Clear lungs. Suggestion of small amount of subcutaneous edema along the lower right chest wa ll region. Correlate for posttraumatic or possibly infectious change.
[2023-02-25 00:46] VITALS: PULSE 95; RESP 20; TEMP 36.6; O2SAT 99
--- NOTE | 2023-02-25 00:50 | ECG_ITS ---
Measurements Intervals [place] Rate: 89 P: 29 MA: 134 QRS: 77 QRSD: 149 T: 240 QT: 393 QTc: 481 Interpretive Statements SINUS RHYTHM LEFT BUNDLE BRANCH BLOCK BASELINE ARTIFACT- I, II, III, AVL, AVF, V5 ABNORMAL ECG COMPARED TO ECG 08/10/2021 23:34:07 LEFT BUNDLE-BRANCH BLOCK NOW PRESENT Electronically Signed On 02-25-2023 6:40:47 CDT by Taye Lake D.O.
[2023-02-25 01:03] LABS: Basophils Absolute Auto 0.1 K/mm3 (0.0-0.1); Basophils Percent Auto 0.7 % (0.2-1.2); Eosinophils Absolute Auto 0.2 K/mm3 (0-0.3); Eosinophils Percent Auto 1.4 % (0-4.4); Hematocrit 53.1 % (42.0-52.0); Hemoglobin 17.8 g/dL (14.0-18.0); Immature Granulocyte Percent A 0.9 % (0-0.5); Lymphocytes Absolute Auto 4.39 K/mm3 (0.9-3.2); Lymphocytes Percent Auto 41.1 % (18.3-44.2); Mean Corpuscular HGB Conc 33.5 g/dl (32-36); Mean Corpuscular Hemoglobin 31.7 pg (26-34); Mean Corpuscular Volume 94.5 fl (80-100); Mean Platelet Volume 8.9 fl (7.4-10.4); Monocytes Absolute Auto 0.8 K/mm3 (0.1-0.6); Monocytes Percent Auto 7.6 % (2.6-8.5); Neutrophils Absolute Auto 5.1 K/mm3 (1.3-6.7); Neutrophils Percent Auto 48.3 % (45.5-73.1); Platelet Count Result 326 k/mm3 (150-375); Red Blood Count 5.62 M/mm3 (4.6-6.20); Red Cell Distribution Width 14.8 % (11.5-14.5); White Blood Count 10.7 K/mm3 (4.5-10.0)
[2023-02-25 01:13] LABS: Alanine Aminotransferase 84 U/L (6-50); Albumin Level 4.9 g/dL (3.5-5.1); Alkaline Phosphatase 119 U/L (38-126); Anion Gap 10 mmol/L (8-16); Aspartate Amino Transferase 70 U/L (17-59); Bilirubin,Total 0.8 mg/dL (0.2-1.3); Blood Urea Nitrogen 10 mg/dL (9-20); Calcium 8.8 mg/dL (8.4-10.2); Carbon Dioxide 31 mmol/L (22-30); Chloride 99 mmol/L (98-107); Estimated CRCL calculation 99 ml/min; Estimated Glomerular Filt Rate > 60; Glucose 107 mg/dL (65-110); Lipase 78 U/L (23-300); Potassium 3.7 mmol/L (3.4-5.0); Sodium 140 mmol/L (137-145)
[2023-02-25 01:30] VITALS: BP 154/80; RESP 18
[2023-02-25 01:32] LABS: Troponin I < 0.012 ng/mL (0.000-0.034)
--- NOTE | 2023-02-25 01:44 | ED.GENADULT ---
HPI - General Adult General Chief complaint: Unspecified Stated complaint: right side pain Time Seen by Provider: 02/25/23 00:52 History of Present Illness HPI narrative: Patient is a 52-year-old male with a history of schizophrenia, COPD, asthma presenting with right-sided pain. Patient states that he was at a bar playing videogames when he developed right-sided chest pain. States that it is along his lateral right lower lives. States it is worse with deep breathing. States that he always feels short of breath because of his COPD. States that he still smokes. He denies any left-sided chest pain. No back pain or lightheadedness. No abdominal pain or nausea or vomiting. No leg swelling. Related Data Home Medications Medication Instructions Recorded Confirmed albuterol sulfate 2.5 mg/3 mL 2.5 mg continuous nebulization QID 11/05/19 01/09/23 (0.083 %) solution for nebulization fluticasone 232 mcg-salmeterol 14 2 inh inhalation BID 11/05/19 01/09/23 mcg/actuation breath activated powdr montelukast 10 mg tablet 10 mg PO HS 11/05/19 01/09/23 sertraline 25 mg tablet 25 mg PO DAILY 11/05/19 01/09/23 Allergies Allergy/AdvReac Type Severity Reaction Status Date / Time aspirin AdvReac Other Verified 02/01/23 08:33 SALVADOREAN MEASLES INJECTION Allergy Mild Unknown Uncoded 02/01/23 08:33 BEE STINGS Allergy Unknown Hives Uncoded 02/01/23 08:33 POISON AMBROCIO Allergy Unknown Itching Uncoded 02/01/23 08:33 Review of Systems Review of Systems: All systems reviewed & are unremarkable except as noted in HPI and below PMFSH Past Medical History Medical History Asthma Bilateral ankle fractures COPD (chronic obstructive pulmonary disease) Depression Fracture of lumbar vertebra GERD (gastroesophageal reflux disease) H/O retained foreign body fully removed Hepatitis C Hernia HTN (hypertension) Paranoid schizophrenia Peripheral neuropathy Previous known suicide attempt Surgical History Surgical History History of surgery on arm Right hand Family History Family History Mother Heart disease Acute myocardial infarction Kidney failure Emphysema lung Social History Social History Social History: He continues to smoke 1 pack a cigarettes per day. no alcohol. Occasional marijuana . He currently lives in of hotel . He is single and has twin daughters. Code status full code Smoking status: Current every day smoker Substance use: current Substance use type: marijuana Lack of Transportation: YES Lack of Food: Often True Current Housing: I Do Not Have Housing Concerned About Future Housing: YES Difficulty Paying Gas/Electric Bills: YES Difficulty Paying for Meds: YES Currently Unemployed: YES Education: Decline to Answer Difficulty w/ Childcare or Family Care: No Gender identity (if verbalized by the patient): Male Spiritual care concerns: No Exam Narrative: GENERAL: Disheveled, no acute distress, cooperative HEAD: Normocephalic, atraumatic. EYES: PERRLA and EOMI. ENT: edentulous NECK: Supple. CHEST: wheezing bilaterally, no respiratory distress; focal tenderness over lateral right lower ribs, no ecchymoses or erythema HEART: Regular rate and rhythm. No murmur heard. Normal peripheral pulses. ABDOMEN: Soft, nontender, nondistended EXTREMITIES: Normal range of motion. No edema. SKIN: Warm, dry, no rash. NEURO: No focal deficits. Alert and oriented x3. PSYCH: rambling speech, cooperative Course Vital Signs Vital signs: Vital Signs Temperature 97.8 F 02/25/23 00:46 Pulse Rate 95 02/25/23 00:46 Respiratory Rate 20 02/25/23 00:46 Pulse Oximetry 99 02/25/23 00:46 Oxygen Delivery Room Air 02/25/23 00:46 Temperature 98 F
[2023-02-25] MEDS: ACETAMINOPHEN 500 MG TABLET 1000 MG PO (01:55)
[2023-02-25] MEDS: fentaNYL CITRATE INJ (*CRX) 100 MCG/2 ML VIAL 50 MCG IV PUSH ×2 (01:55→06:28)
[2023-02-25] MEDS: SODIUM CHLORIDE 0.9% IV 1,000 ML 999 ML IV CONT (01:55)
[2023-02-25 02:09] VITALS: PULSE 82; RESP 18
[2023-02-25] MEDS: LEVALBUTEROL NEB 1.25 MG/3 ML 2.5 MG INHALATION (02:09)
[2023-02-25] MEDS: IPRATROPIUM BR 0.02% INH SOLN 0.5 MG/2.5 ML VIAL INHALATION (02:09)
[2023-02-25 02:30] LABS: D Dimer 1.03 ug/mL (<0.48)
[2023-02-25 03:12] VITALS: BP 112/69; PULSE 65; RESP 18; TEMP 36.6; O2SAT 99
[2023-02-25 04:20] LABS: Troponin I < 0.012 ng/mL (0.000-0.034)
[2023-02-25 05:21] VITALS: BP 108/79; PULSE 89; RESP 20; TEMP 36.6; O2SAT 99
--- NOTE | 2023-02-25 05:36 | PC.NURSE ---
report given to Dick SHETH at [facility] ED>
[2023-02-25 06:31] VITALS: BP 118/79; PULSE 84; RESP 18; TEMP 36.6; O2SAT 99
== END 2023-02-25 06:32 | disposition short-term general hospital (02) ==
PROVIDERS: Emergency Provider Emergency Medicine
DX: S22.41XA Multiple fractures of ribs, right side, initial encounter for closed fracture (principal); J93.9 Pneumothorax, unspecified; J44.9 Chronic obstructive pulmonary disease, unspecified; I10 Essential (primary) hypertension; K21.9 Gastro-esophageal reflux disease without esophagitis; G62.9 Polyneuropathy, unspecified; F20.9 Schizophrenia, unspecified; F32.A Depression, unspecified; F17.210 Nicotine dependence, cigarettes, uncomplicated; Z86.19 Personal history of other infectious and parasitic diseases; I44.7 Left bundle-branch block, unspecified; X58.XXXA Exposure to other specified factors, initial encounter
CPT/HCPCS: 36415; 71046; 71275; 80053; 83690; 84484; 85025; 85380; 93005; 94640; 96361; 96374; 96376; 99284; 99285; A9270; J3010; J7030; Q9967

== ENCOUNTER 2025-06-27 08:03 | Emergency (ER) | payer OTHER, SELFPAY ==
--- OUTSIDE RECORDS SUMMARY | 2024-09-09 04:12 | XMS_ITS | Continuity of Care Document ---
Author Organization [facility] Address [address] [place] [address] Phone Care Team Providers Care Route Jumper Name Role Phone Jesus Francis MD Unavailable Unavailable Allergies, Adverse Reactions, Alerts Substance Reaction Status Criticality No Known Allergies Active No Inform ation Medications Medication Instructions Dosage Effective Dates (start - stop) Status Comments Advair HFA 230 mcg-21 mcg/actuation aerosol inhaler inhale 2 puff by inhalation route 2 times every day in the morning and evening 2.00 puff - Active EpiPen 0.3 mg/0.3 mL injection, auto-injector inject 0.3 milliliter by intramuscular route once as needed for anaphylaxis 0.3 MG - Active albuterol sulfate HFA 90 mcg/actuation aerosol inhaler inhale 2 puff by Inhalation route every 4 - 6 hours as needed 2 puff - Active BIN: [id number]: 54GRP: [id number]: [id number] Flonase Allergy Relief 50 mcg/actuation nasal spray,suspension spray 2 spray by intranasal route every day in each nostril 100-100 MCG - Active montelukast 10 mg tablet take 1 tablet by oral route every day in the evening 10 MG - Active Spiriva Respimat 2.5 mcg/actuation solution for inhalation inhale 2 puff by inhalation route every day at the same time each day 5 MCG - Active Procedures Procedure Date Est (Level 4) OFFICE/OUTPATIENT VISIT Felix New (Level 5) OFFICE/OUTPATIENT VISIT Wy Advance Directives Directive Yes / No Effective Date File Name No Information Encounters Encounter Description Practice Location Reason(s) For Visit Diagnoses Date Provider Providers Copied on Encounter [facility], [address] [place] [address], [id number], tel:[phone] [facility] No Information 4 Tito Cheshil. [address], [place], [address], [place]. tel:[phone] Referring Provider: Abel Valenzuela, [address], [place], [address]. tel:[phone] [facility], [address] [place] [address], [id number], tel:[phone] [facility] No Information 4 Tito Cheshil. [address], [place], [address], [place]. tel:[phone] Referring Provider: Abel Valenzuela, [address], [place], [address]. tel:[phone] Est (Level 4) OFFICE/OUTPAT IENT VISIT [facility], [address] [place] [address], [id number], [place] tel:[phone] [facility] allergies and asthma (chief complaint) Severe persistent asthmaOther allergic rhinitisToxic effect of venom of bee, undetermined, subsequent encounter 4 Tito Cheshil. [address], [place], [address], [place]. tel:[phone] Referring Provider: Abel Valenzuela, [address], [place], [address]. tel:[phone] New (Level 5) OFFICE/OUTPAT IENT VISIT [facility], [address] [place] [address], [id number], tel:[phone] [facility] allergies and asthma (chief complaint) Severe persistent asthmaOther allergic rhinitisToxic effect of venom of bee, undetermined, initial encounter Tito Lee. [address], [place], [address], [place]. tel:[phone] Referring Provider: Abel Valenzuela, [address], [place], [address]. tel:[phone] Family History Family Member Type Diagnosis Age At Onset Daughter Problem Asthma Brother Problem Asthma Payers Payer name Insurance type Covered republican ID Abril ramos(s) Reinaldo [id number] Social History Type Description Quantity Date Captured Comments Alcohol Use Details Unknown Caffeine Use Details Unknown Tobacco Use Status Smoking Status No Information Sex Male Chief Complaint And Reason For Visit No Information Reason For Referral Reason For Referral No Information Plan Of Treatment Date Type Action Status Goal Tobacco cessation counseling completed Goal Tobacco cessation counseling completed Future Order: Lab Order Aspergil lyn fumigatus (m3) IgG ([id number]), Ordered on: Ordered Future Order: Lab Order Stinging Insect (HB, WFH, YFH, YJ, W) ([id number]), Ordered on: Ordered Future Order: Lab Order Tryptase ([id number]), Ordered on: Ordered History Of Present Illness Encounter Date Complaint History Of Prese nt Illness allergies and asthma LV: 01/09/24 He has asthma, rhinitis, and venom allergy. He presents for follow up via TM (phone only).AsthmaHe is on Advair 230/21 c g 2 puffs BID, Spivia 2 puffs daily, and montelukast (singulair) 10 mg daily. He has albuterol available PRN (used 3 times daily).He has continued cough and uncontrolled symptoms. ARHe is on Flonase 2 SEN daily. Venom AllergyNo interval stings. He has epinephrine auto-injectors (epipen or auvi-q). Data01/31/24Tryptase: 3.6Honeybee IgE: 11.8*Api m1: 0.69*Api m2: 0.8*Api m3: 1.14*Api m5: 31.5*Api m10: 0.88Paper Wasp IgE: >100*Romain d5: >100Yellow Jacket IgE: 83.5*Ves v1: 20.7*Ves v5: >100Yellow Hornet IgE, White Faced Hornet: not obtainedAspergillus IgG: not obtained11/06/23A1AT Pi*MMTB Quant Gold: negativeIgG 1123*IgG1 702*IgG2 339*IgG3 89*IgG4 60Abs Eos 240Environmental Immunocaps: +HDM, cat, dog, mouse, cockroach, mold (including Af), grass, trees, ragweed/other weedsTotal IgE 4181CXR 11/08/22 wnl (per records)CT Chest 06/20/23 w/ 6 mm RLL nodule (per records)PFT 12/23/23 (reviewed)*Severe obstructive lung defect*Significant bronchodilator response, FEV1 increased by 30%PFT 07/18/23 (per records)*Low FEV1, nearly significant bronchodilator response allergies and asthma Asthma - AC T: patient has asthma (vs COPD) on Advair / c g 2 puffs BID, Spiriva 2.5 c g 2 puffs daily, montelukast (singulair) 10 mg daily, and albuterol PRN (used 3-4 times daily). They were diagnosed with asthma at age 35 yo. The patient has never been hospitalized for asthma. Currently, they have exertional limitations 2/2 asthma symptoms including dyspnea; and he will have dyspnea at rest as well. They report nocturnal awakenings with dyspnea/chest tightness/cough/wheeze multiple times per night. No ED/PCP/UC visits and no oral steroid bursts because of asthma in the last year. He does have a history of ED visits, though none recently.He follows w/ Dr. Abel Valenzuela in Pulmonology. I reviewed PFT as below.RhinitisThe patient has a history of perennial rhinitis without seasonal worsening. The symptoms include congestion, rhinorrhea (ant/post), and sneezing w/ ocular pruritus and tearing. Currently, the patient is on montelukast (singulair) 10 mg daily, which does not provide adequate relief. Previously they have tried Flonase, but not recently (used temporarily). He notes that he does not like using intranasal medications. The patient does have a history of sinus infection, though does not typically require antibiotics.Venom AllergyHe reports in 1st grade, he was stung by a ?bumblebee on his hand. He does not recall the details of what happened, but he was taken to the ED and he was told he might have if he didn't go.He reports more recently, he has had dyspnea and skin symptoms (mottling, ?cyanosis). He has had to be treated with IM epi at the ED. He does have epinephrine auto-injectors (epipen or auvi-q), but he believes it is out of date. He reports having food immunocaps in the past that were positive.PMH: HepC, alcohol abuse, cirrhosis, substance abuse, GERD, schizophreniaPSH: RUE surgery x 2Medication Allergies: NKDAFHAsthma - brother, daughterSHTobacco: Current Smoker (1 ppd x 38 years)Occupation: not workingEnvironmental HistoryLives in an apartment w/ central air/forced heat, w/o evidence of mold/water damageFlooring in Bedroom: hard flooringPets: dog x 1DataI reviewed outside records available in the EMR11/06/23A1AT Pi*MMTB Quant Gold: negativeIgG 1123*IgG1 702*IgG2 339*IgG3 89*IgG4 60Abs Eos 240Environmental Immunocaps: +HDM, cat, dog, mouse, cockroach, mold (including Af), grass, trees, ragweed/other weedsTotal IgE 4181CXR 11/08/22 wnl (per records)CT Chest 06/20/23 w/ 6 mm RLL nodule (per records)PFT 12/23/23 (reviewed)*Severe obstructive lung defect*Significant bronchodilator response, FEV1 increased by 30%PFT 07/18/23 (per records)*Low FEV1, nearly significant bronchodilator response Functional Status Date Functional Assessmen t No Information Instructions Date Instruction Additional Infor oscar - use advair 230/21 mcg 2 puffs twice daily- use spiriva 2 puffs daily- use montelukast daily- read about Dupixent- follow up in 6 weeks Related to Severe persistent asthma - use Flonase 2 spra ys each nostril twice daily- Please remember to point the nasal spray away from the nasal septum, up and outwards towards the top of the ears on both sides- if nose bleeding occurs, please hold the nasal spray for 2-3 days to allow for healing of the nasal tissue (you may use nasal saline gel or vaseline on a q-tip to help heal the tissue), then restart the nasal spray.- If nose bleeding recurs, please stop the nasal spray and contact our office to set up an appointment for further guidance Related to Other allergic rhinitis Assessments Type Assessment Date No Information Patient Care Teams Name Effective Dates (start - stop) Status Members No Information
--- OUTSIDE RECORDS SUMMARY | 2024-09-09 04:12 | XMS_ITS | Continuity of Care Document ---
Author Organization [facility] Address [address] [place] [address] Phone Care Team Providers Care Elevator Constructor Supervisor Name Role Phone Jesus Francis MD Unavailable [...] as needed 2 puff - Active BIN: [id number]: 54GRP: [id number]: [id number] Flonase Allergy Relief 50 mcg/actuation nasal spray,suspension [...] VISIT Felix New (Level 5) OFFICE/OUTPATIENT VISIT Ar Advance Directives Directive Yes / No Effective Date File Name No Information Encounters Encounter Description Practice Location Reason(s) For Visit Diagnoses Date Provider Providers Copied on Encounter [facility], [address] [place] [address], [id number], tel:[phone] [facility] No Information 4 Tito Cheshil. [address], [place], [address], [place]. tel:[phone] Referring Provider: Abel Valenzuela, [address], [place], [address]. tel:[phone] [facility], [address] [place] [address], [id number], tel:[phone] [facility] No Information 4 Tito Cheshil. [address], [place], [address], [place]. tel:[phone] Referring Provider: Abel Valenzuela, [address], [place], [address]. tel:[phone] Est (Level 4) OFFICE/OUTPAT IENT VISIT [facility], [address] [place] [address], [id number], [place] tel:[phone] [facility] allergies and asthma (chief complaint) Severe persistent asthmaOther allergic rhinitisToxic effect of venom of bee, undetermined, subsequent encounter 4 Tito Cheshil. [address], [place], [address], [place]. tel:[phone] Referring Provider: Abel Valenzuela, [address], [place], [address]. tel:[phone] New (Level 5) OFFICE/OUTPAT IENT VISIT [facility], [address] [place] [address], [id number], tel:[phone] [facility] [place] and asthma (chief complaint) Severe persistent asthmaOther allergic rhinitisToxic effect of venom of bee, undetermined, initial encounter Tito Lee. [address], [place], [address], [place]. tel:[phone] Referring Provider: Abel Valenzuela, [address], [place], [address]. tel:[phone] Family History Family Member Type Diagnosis Age At Onset Daughter Problem Asthma Brother Problem Asthma Payers Payer name Insurance type Covered green party ID Abril ramos(s) Reinaldo [id number] Social History Type Description Quantity Date Captured [...] Lab Order Aspergil lyn fumigatus (m3) IgG ([id number]), Ordered on: Ordered Future Order: Lab Order Stinging Insect (HB, WFH, YFH, YJ, W) ([id number]), Ordered on: Ordered Future Order: Lab Order Tryptase ([id number]), Ordered on: Ordered History Of Present Illness [...]
--- OUTSIDE RECORDS SUMMARY | 2025-03-11 04:00 | XMS_ITS ---
Author Organization [facility] Address [address] [place] [address] Care Team Providers Care Grain Blender Name Role Phone Lida Laws Primary Care Provider Valentine Vega [phone] REASON FOR VISIT 3 Month Psych F/U & Med Refill Medications Medication SIG (Take, Route, Frequency, Duration) Notes Start Date End Date Status Tab-A-Cat - TAKE 1 TABLET BY ABHINAV DAILY; Duration: 30 Active Singulair 10 MG 1 tablet Orally Once a day; Duration: 30 days Active risperiDONE 0.5 MG 1 tablet in the morn ing Orally Once a day; Duration: 30 days 04/08/2024 Active risperiDONE 2 MG 1 tablet at bedtime Orally Once a day; Duration: 30 days 08/30/2023 Active hydrOXYzine HCl 50 MG 1 tablet as needed Orally twice a day; Duration: 30 days Active Fluticasone-Salmeterol 115-21 MCG/ACT 2 puffs Inhalation Twice a day; Duration: 30 days Active Albuterol Sulfate HFA 108 (90 Base) MCG/ACT 1 puff as needed Inhalation every 4 hrs; Duration: 30 days Active Social History Sex Assigned At : Social History Observation Description Sex Assigned At Male Encounters Encounter Location Date Provider Diagnosis [facility] [address] [place] [address] 03/11/2025 Valentine Vega Plan Of Treatment No Information Progress Notes * Sophia CHRISTENSENOB:1970 ( 54 yo M)Acc No.[id number]:03/11/2025 UNLOCKED PROGRESS NOTE Patient: Nader BOYLE Provider: Jackson Vega DNP, MAIRA, RAMON :1970 A ge:54 Y S ex:Male Date:03/11/2025 Address:[address] [place] [address], [address] Pcp:Lida Laws Subjective: * Chief Complaints: * 1 . 3 Month Psych F/U & Med Refill. * Medical History: * Medications: T aking Albuterol Sulfate HFA 108 (90 Base) MCG/ACT Aerosol Solution 1 puff as needed Inhalation every 4 hrs , Taking Fluticasone-Salmeterol 115-21 MCG/ACT Aerosol 2 puffs Inhalation Twice a day , Taking Tab-A-Cat - Tablet TAKE 1 TABLET BY MOUTH DAILY , Taking hydrOXYzine HCl 50 MG Tablet 1 tablet as needed Orally twice a day , Taking risperiDONE 2 MG Tablet 1 tablet at bedtime Orally Once a day , Taking risperiDONE 0.5 MG Tablet 1 tablet in the morning Orally Once a day , Taking Singulair 10 MG Tablet 1 tablet Orally Once a day Objective: * Vitals: Assessment: Plan: * Treatment: * * Electronic signature of Natasha Vega on 06/27/2025 at 08:05 AM CDT Sign off status: Pending * Provider: Jackson Vega DNP, PMHNP-BC, BIOMEDICAL EQUIPMENT SUPPORT SPECIALIST Date: 0 03/11/2025 Generated for Printing/Faxing/eTransmitting on: 06/27/2025 08:05 AM CDT
--- OUTSIDE RECORDS SUMMARY | 2025-06-22 05:00 | XMS_ITS ---
Author Organization [facility] Address [address] [place] [address] Care Team Providers Care Fiber Locking Supervisor Name Role Phone Lida Laws Primary Care Provider [phone] Results Component Value Reference Range Notes CMP 14 Comprehensive Metabol ic Panel* (Not yet reviewed by provider) Interpretation: Performing Lab:[facility] [address] [facility], Phone - [phone], Director - PhDLawrence F. Quigley [facility] Hospitaluti Notes/Report: Glucose TNP Test not perfor med. No serum gel received. BUN TNP Test not perfor med Creatinine TNP Test not perfor med Sodium TNP Test not perfor med Potassium TNP Test not perfor med Chloride TNP Test not perfor med Carbon Dioxide, Total TNP Test n ot performed Calcium TNP Test not perfor med Protein, Total TNP Test not perf ormed Albumin TNP Test not perfor med Bilirubin, Total TNP Test not pe rformed Alkaline Phosphatase TNP Test no t performed AST (SGOT) TNP Test not perfor med ALT (SGPT) TNP Test not perfor med B-Type Natriuretic Peptide ( Not yet reviewed by provider) Interpretation: Performing Lab:[facility] [employer], [address], [place], Phone - [phone], Director - PhDLawrence F. Quigley Memorial Hospitaluti Notes/Report: B-Type Natriuretic Peptide 14.0 0.0-100.0 pg/m L Siemens ADVIA Centaur XP methodology Request Problem TNP Test not performed. No serum gel received. TEST: [id number] Comp. Metabolic Panel (14) REASON FOR VISIT labs Medications Medication SIG (Take, Route, Frequency, Duration) Notes Start Date End Date Status Tab-A-Cat - TAKE 1 TABLET BY ABHINAV TH DAILY; Duration: 30 Active hydrOXYzine HCl 50 MG 1 tablet as needed Orally twice a day; Duration: 30 days Active risperiDONE 2 MG 1 tablet at bedtime Orally Once a day; Duration: 30 days 08/30/2023 Active Singulair 10 MG 1 tablet Orally Once a day; Duration: 30 days Active risperiDONE 0.5 MG 1 tablet in the morn ing Orally Once a day; Duration: 30 days 04/08/2024 Active Albuterol Sulfate HFA 108 (90 Base) MCG/ACT 1 puff as needed Inhalation every 4 hrs; Duration: 30 days Active Naproxen 500 MG 1 tablet with food o r milk as needed Orally every 12 hrs; Duration: 30 days Active Fluticasone-Salmeterol 115-21 MCG/ACT 2 puffs Inhalation Twice a day; Duration: 30 days Active Social History Sex Assigned At : Social History Observation Description Sex Assigned At Male Encounters Encounter Location Date Provider Diagnosis [address] [address] 06/22/2025 Lida Laws CHF (congestive heart failure) I50.9 Assessments Encounter Date Diagnosis (ICD Code) Assessment Notes Treatment Notes Treatment Clinical Notes Section Notes 06/22/2025 CHF (congestive heart failure) (ICD-10 - I50.9) Plan Of Treatment Pending Test Test Name Order Date B-Type Natriuretic Peptide 06/22/2025 CMP 14 Comprehensive Metabolic Panel* Progress Notes * Sophia CHRISTENSENOB:1970 ( 54 yo M)Acc No.[id number]:06/22/2025 UNLOCKED PROGRESS NOTE Patient: Nader BOYLE Provider: Shahrzad Laws, MSN, TRAFFIC OBSERVER, PATIENT CASE COORDINATOR-BC, PATIENT CASE COORDINATOR-C :1970 A ge:54 Y S ex:Male Date:06/22/2025 Address:[address] [place] [address], [address] [facility] Subjective: * Chief Complaints: * 1 . Labs. * Medical History: * Medications: T aking Naproxen 500 MG Tablet 1 tablet with food or milk as needed Orally every 12 hrs , Taking Albuterol Sulfate HFA 108 (90 Base) MCG/ACT Aerosol Solution 1 puff as needed Inhalation every 4 hrs , Taking Fluticasone-Salmeterol 115-21 MCG/ACT Aerosol 2 puffs Inhalation Twice a day , Taking hydrOXYzine HCl 50 MG Tablet 1 tablet as needed Orally twice a day , Taking Tab-A-Cat - Tablet TAKE 1 TABLET BY MOUTH DAILY , Taking Singulair 10 MG Tablet 1 tablet Orally Once a day , Taking risperiDONE 2 MG Tablet 1 tablet at bedtime Orally Once a day , Taking risperiDONE 0.5 MG Tablet 1 tablet in the morning Orally Once a day Objective: * Vitals: Assessment: * Assessment: 1. C HF (congestive heart failure) - I50.9 Plan: * Treatment: * * Electronic signature of Kirill Laws APRN, [id number] on 06/27/2025 at 08:04 AM CDT Sign off status: Pending * Provider: Shahrzad Laws, MSN, TRAFFIC OBSERVER, PATIENT CASE COORDINATOR-BC, PATIENT CASE COORDINATOR-C Date: 06/22/2025 Generated for Printing/Faxing/eTransmitting on: 06/27/2025 08:04 AM CDT
--- OUTSIDE RECORDS SUMMARY | 2025-06-24 06:20 | XMS_ITS ---
Author Organization [facility] Address [address] [place] [address] Care Team Providers Care Statistics Intern Name Role Phone Lida Laws Primary Care Provider Valentine Vega [phone] REASON FOR VISIT 3 Month Psych F/U & Med Refill Social History Sex Assigned At : Social History Observation Description Sex Assigned At Male Encounters Encounter Location Date Provider Diagnosis [address] [place] [address] 06/24/2025 Valentine Vega Plan Of Treatment No Information Progress Notes * FERMIN MichaelaHannahOB:1970 ( 54 yo M)Acc No.[id number]:06/24/2025 UNLOCKED PROGRESS NOTE Patient: Nader BOYLE Provider: Jackson Vega DNP, PMHNP-, YARD PIPE GRADER :1970 A ge:54 Y S ex:Male Date:06/24/2025 Address:[address] [place] [address], [address], [place], [place] Pcp:Lida Laws Subjective: * Chief Complaints: * 1 . 3 Month Psych F/U & Med Refill. * Medical History: Objective: * Vitals: Assessment: Plan: * Treatment: * * Electronic signature of Natasha Vega on 06/27/2025 at 08:05 AM CDT Sign off status: Pending * Provider: Jackson Vega DNP, PMHNP-BC, YARD PIPE GRADER Date: 0 06/24/2025 Generated for Printing/Faxing/eTransmitting on: 0 06/27/2025 08:05 AM CDT
[2025-06-27] VITALS (9 sets, daily range): BP systolic 141–175; BP diastolic 85–111; PULSE 88–91; RESP 20–32; TEMP 36.7; O2SAT 94–100
--- NOTE | ~2025-06-27 | XR_ITS ---
EXAMINATION: XR chest 1V portable 06/27/2025 09:34 INDICATION: Shortness of breath PROCEDURE: AP portable chest COMPARISON: 02/25/2023 FINDINGS: The lungs are clear. The cardiomediastinal silhouette is within normal limits. There are no pleural effusions. There is no pneumothorax suspected. Probable prominent nipple shadow left lower thorax. IMPRESSION: 1: NO ACUTE CARDIOPULMONARY DISEASE. 2: Probable prominent left nipple shadow. Recommend follow-up upright PA view of the chest with nipple markers. Reviewed, dictated and finalized at location O. IMPRESSION: 1: NO ACUTE CARDIOPULMONARY DISEASE. 2: Probable prominent left nipple shadow. Recommend follow-up upright PA view o f the chest with nipple markers.
--- NOTE | 2025-06-27 08:04 | ECG_ITS ---
Test Date: 2025-06-27 08:14:00 Measurements Intervals [place] Rate: 93 P: -1 CT: 94 QRS: 66 QRSD: 146 T: -87 QT: 389 QTc: 484 Interpretive Statements SINUS RHYTHM WITH SHORT CT INTERVAL LEFT BUNDLE BRANCH BLOCK BASELINE ARTIFACT- I, II, III, AVR, AVL, AVF, V2, V4-V6 ABNORMAL ECG No previous ECG available for comparison Electronically Signed On 06-27-2025 15:59:04 CDT by Taye Lake D.O.
--- OUTSIDE RECORDS SUMMARY | 2025-06-27 08:05 | XMS_ITS | Patient Health Record ---
Author Organization [facility] Address [address] [place] [address] Care Team Providers Care Pressure Welder Name Role Phone Lida Laws Primary Care Provider [phone] Valentine Vega Unavailable [phone] Allergies Allergen (clinical drug ingredient) Drug/Non Drug Allergy documented on EMR Reaction Allergy Type Onset Date Status Information temporarily unavailable bee sting (uncoded) anaphylaxis Allergy Active Information temporarily unavailable Turkmen measles vaccine (uncoded) anaphylaxis Allergy Active Information temporarily unavailable poison dinah (uncoded) hives Allergy Active Results Component Value Reference Range Notes B-Type Natriuretic Peptide ( Not yet reviewed by provider) Interpretation: Performing Lab:[facility], [address] [facility], Phone - [phone], Director - PhDArbour-Hri Hospitalgerber Notes/Report: B-Type Natriuretic Peptide 14.0 0.0-100.0 pg/m L Siemens ADVIA Centaur XP methodology Request Problem TNP Test not performed. No serum gel received. TEST: [id number] Comp. Metabolic Panel (14) CMP 14 Comprehensive Metabol ic Panel* (Not yet reviewed by provider) Interpretation: Performing Lab:[facility], [address] [facility], [place], Phone - [phone], Director - PhDArbour-Hri Hospitalgerberi Notes/Report: Glucose TNP Test not perfor med. [...] ALT (SGPT) TNP Test not perfor med No Test Indicated Reviewed date:06/24/2025 03:43:44 PM Interpretation: Performing Lab:[facility], [address] [facility], [place], Phone - [phone], Director - Lenin Notes/Report: . A lavender top tube was received with no test indicated . Dear Doctor, . The requisition we received for the above patient has no test indicated on the request form for one or more of the specimens submitted. The [place] Code of Federal Regulations requires a written and signed request be forwarded to the testing laboratory following the verbal order of a laboratory test. . Date: . ICD-9/10 Diagnosis Code(s): . Physician or Authorized Designee Signature: . . Your signature confirms your order of the test(s) listed . Required test name(s): . Required test number(s): . Please provide requested information and fax to to expedite testing. . Reason For Referral Reason hepatitis C carrier, prefer to be sent to [facility] Diagnosis 1 Hepatitis C (B19.20) Referral Organization [facility] Referring Provider First Name Lida Referring Provider Last Name Veto Referring Provider [facility] roberta Referred Provider [facility], Gastroenterology Referred Provider Specialty Gastroentero logy General Notes Annalee Gregg 06/16/2025 02:21:17 PM >verified with staff that patient insurance is accepted., Annalee Gregg 06/16/2025 02:23:06 PM >letter mailed; eMessage sent Clinical Notes [facility] Gastroentero logy & Hepatology, [facility], [address] [place] [address] [place] [address], , or [phone] Referral Priority Routine Reason newly diagnosed with CHF Requesting records from [facility] Diagnosis 1 CHF (congestive hear t failure) (I50.9) Referral Organization [facility] Referring Provider First Name Lida Referring Provider Last Name Veto Referring Provider [facility] roberta Referred Provider [facility] [place] Referred Provider Specialty Cardiology General Notes Annalee Gregg 06/16/2025 04:33:26 PM >verified with staff, patient's insurance is accepted., Annalee Gergg 06/16/2025 04:51:05 PM >letter mailed; eMessage sent Clinical Notes [facility] Medical [facility] [place], [address] [place] [address] [address], [address], [place]. [address], , Referral Priority Routine Medications Medication SIG (Take, Route, Frequency, Duration) Notes Start Date End Date Status Tab-A-Cat - TAKE 1 TABLET BY ABHINAV DAILY; Duration: 30 Active hydrOXYzine HCl 50 [...] Twice a day; Duration: 30 days Active Immunizations Vaccine Route Administration Date Status Comme nts FLU VAC NO PRSV 4VAL 6 mo+ IM Intramuscular 11/29/2022 Administered patient tolerat ed injection well. Social History Tobacco Use: Social History Observation Description Date Details (start date - stop date) Current Smoker NA - NA Sex Assigned At : Social History Observation Description Sex Assigned At Male PRAPARE Question Answer Notes Date Completed/Updated: 04/16/2024 What is your current housing situation? I do not have housing (staying with others, in a hotel, in a long-term, living outside on the street, on a beach, or in a park) Are you worried about losing your housing? I cho ose not to answer this question What is the highest level of school that you have finished? High school diploma or GED What is your current work situation? Oth erwise unemployed but not seeking work (ex. student, retired, disabled, unpaid primary outdoor emergency care technician) In the past year, have you o r any family members you live with been unable to get any of the following when it was really needed? Check all that apply I do not have problems meeting my needs Has lack of transportation k ept you from medical appointments, meetings, work or from getting things needed for daily living? No How often do you see or talk to people that you care about and feel close to? (For example: talking to friends on the phone, visiting friends or family, going to moravian or club meetings) Less than once a week How stressed are you? Stress is when someone feels tense, nervous, anxious, or can\t sleep at night because their mind is troubled Quite a bit In the past year have you sp ent more than 2 nights in a row in a alf, skilled nursing, assisted center, or juvenile correctional facility? No Are you a refugee? No What country are you from? [place] Do you feel physically and e motionally safe where you currently live? Yes In the past year, have you b een afraid of your partner or ex-partner? No PRAPARE Score: 8 Tobacco Control (Standard) Question Answer Notes Tobacco use: Current smoker Problems Problem Type SNOMED Code ICD Code Onset Dates Problem Status W/U Status Risk Notes Problem Information temporarily unavailable Nicotine dependence, unspecified, uncomplicated (F17.200) Active confirmed Problem Information temporarily unavailable COPD (chronic obstructive pulmonary disease) (J44.9) Active confirmed Problem Information temporarily unavailable Hepatitis C (B19.20) Active confirmed Problem Information temporarily unavailable Asthma (J45.909) Active confirmed Problem Information temporarily unavailable CHF (congestive heart failure) (I50.9) Active confirmed Problem Information temporarily unavailable Schizoaffective disorder (F25.9) Active confirmed Problem Information temporarily unavailable Alcohol use disorder (F10.99) Active confirmed Problem Information temporarily unavailable Schizophrenia, paranoid type (F20.0) Active confirmed Problem Information temporarily unavailable Gallstones (K80.20) Active confirmed Problem Information temporarily unavailable Ulcer of right lower extremity, limited to breakdown of skin (L97.911) Active confirmed Problem Information temporarily unavailable Nodule on liver (K76.89) Active confirmed Vital Signs Heart Rate 95 /min 06/09/2025 Temperature 98.0 degrees Fahrenheit 09/02/2024 Respiratory Rate 18 /min 12/17/2024 Blood pressure diastolic 82 mm Hg 06/09/2025 Oximetry 97 % 06/09/2025 Height 67 in 06/09/2025 Blood pressure systolic 124 mm Hg 06/09/2025 Weight 168.2 lbs 06/09/2025 BMI 26.34 kg/m2 06/09/2025 Encounters Encounter Location Date Provider Diagnosis [address] [place] [address] 06/22/2025 Lida Laws CHF (congestive heart failure) I50.9 [place] [address] [place] [address] 08/20/2024 Valentine Vega Schizoaffective disorder F25.9 and Nicotine dependence, unspecified, uncomplicated F17.[address] [address] 09/02/2024 Lida Laws Screening for colon cancer Z12.11 and COPD (chronic obstructive pulmonary disease) J44.9 [facility] [address] [place] [address] 12/17/2024 Valentine Vega Schizophrenia, paranoid type F20.0 and Nicotine dependence, unspecified, uncomplicated F17.200 [facility] [address] [place] [address] 06/09/2025 Lida Laws CHF (congestive heart failure) I50.9 and Hepatitis C B19.[address] [place] [address] 09/14/2024 Lida Laws [facility] [address] [place] [address] 04/05/2025 Valentine Vega Schizophrenia, paranoid type F20.0 [place] [address] [place] [address] 04/19/2025 Valentine Vega Schizophrenia, paranoid type F20.[address] [place] [address] 06/10/2025 Valentine Vega Schizophrenia, paranoid type F20.0 Assessments Encounter Date Diagnosis (ICD Code) Assessment Notes Treatment Notes Treatment Clinical Notes Section Notes 08/20/2024 Schizoaffective disorder (ICD-10 - F25.9) Continue current medications, wants to keep risperdal as is. Reviewed Prescription Monitoring program. Continue services as scheduled. Labs completed recently. May self-administer medications or be administered own oral medications per [facility] protocols. Provided informed consent with understanding of side effects, adverse effects, risks and benefits as well as alternative treatments as previously discussed and with the above recommended medications & other aspects of the treatment program. Agrees to return sooner if symptoms worsen or suicidal or homicidal ideations occur. 09/02/2024 COPD (chronic obstructive pulmonary disease) (ICD-10 - J44.9) 09/02/2024 Screening for colon cancer (ICD-10 - Z12.11) 12/17/2024 Schizophrenia, paranoid type (ICD-10 - F20.0) Continue current medications. Discussed risperdal increase. He does not want to change the dose now. Continue services as scheduled. Labs completed recently. May self-administer medications or be administered own oral medications per [facility] protocols. Provided informed consent with understanding of side effects, adverse effects, risks and benefits as well as alternative treatments as previously discussed and with the above recommended medications & other aspects of the treatment program. Agrees to return sooner if symptoms worsen or suicidal or homicidal ideations occur. 04/05/2025 Schizophrenia, paranoid type (ICD-10 - F20.0) 04/19/2025 Schizophrenia, paranoid type (ICD-10 - F20.0) 06/09/2025 Hepatitis C (ICD-10 - B19.20) 06/09/2025 CHF (congestive heart failure) (ICD-10 - I50.9) 06/10/2025 Schizophrenia, paranoid type (ICD-10 - F20.0) 06/22/2025 CHF (congestive heart failure) (ICD-10 - I50.9) 12/17/2024 Nicotine dependence, unspecified, uncomplicated (ICD-10 - F17.200) 08/20/2024 Nicotine dependence, unspecified, uncomplicated (ICD-10 - F17.200) Plan Of Treatment Pending Test Test Name Order Date B-Type Natriuretic Peptide 06/22/2025 CMP 14 Comprehensive Metabolic Panel* Insurance Providers Payer Name Payer Address Payer Phone Subscriber Number Group Number Insured Name Patient Relationship to Insured Coverage Start Date Coverage End Date [facility] Attn Claims Department [address] [place] [address] [phone] [id number] aNder Molina Self - patient is the insured [facility] [employer] [employer] [facility] Department [address] [place] [address] [phone] [id number] Nader Molina Self - patient is the insured 3 Medical (General) History Surgical History Surgery Date(Month/Year) Right arm- cut out muscles, repair media n nerve and tendons 2018 Hospitalization History Reason Date(Month/Year) Alcohol poisoning 2001 Pneumonia 2000 Mental illness/SI Several
--- OUTSIDE RECORDS SUMMARY | 2025-06-27 08:05 | XMS_ITS | Clinical Summary ---
[facility] Address [address] [place] [address] Care Team Providers Care Retail Aide Name Role Phone Gina Corbin Jennifer TODDLER TEACHER Primary Care Provider [phone] Allergies Active Allergy Reactions Criticality Noted Date Comments Measles And Rubella Live Virus Vaccine Other (See comments) Low 03/12/2019 Patient was told by his mother he can never have this. Unknown reaction in family member. Medications sodium chloride 0.9 % solution for nebulization with albuterol 5 mg/mL solution for nebulization 0.6 mg/mL every 6 (six) hours Active fluticasone propionate (FLONASE ALLERGY RELIEF) 50 mcg/actuation nasal spray daily Active ipratropium (ATROVENT) 0.02 % nebulizer solution 0.02 % every 6 (six) hours Active raNITIdine (ZANTAC) 15 mg/mL syrup 150 mg 2 (two) times a day Active amLODIPine (NORVASC) 10 mg tablet 10 mg daily Active gabapentin (NEURONTIN) 300 mg capsule 300 mg 3 (three) times a day 7 Active hydrOXYzine (VISTARIL) 25 mg capsule TK 1 C PO BID PRN 0 9 Active lisinopril (PRINIVIL,ZESTRIL ) 20 mg tablet 20 mg daily 7 Active montelukast (SINGULAIR) 10 mg tablet 2 9 Active QUEtiapine (SEROquel) 25 mg tablet TK 1 T PO QAM AND 1 T PO QPM 0 9 Active sertraline (ZOLOFT) 25 mg tablet TK 1 T PO QD IN THE MORNING 1 9 Active oxyCODONE-acetami nophen (PERCOCET) 7.5-325 mg per tabletIndications :Pain Take 1-2 tablets every 4 hours as needed for pain 30 tablet 9 Active albuterol (PROVENTIL,VENTOL IN) 2.5 mg /3 mL (0.083 %) nebulizer solution VVN QID 2 9 Active fluticasone propion-salmetero l (AIRDUO RESPICLICK) 232-14 mcg/actuation inhaler TK 1 INHALATION PO BID 2 9 Active oxyCODONE-acetami nophen (PERCOCET) 7.5-325 mg per tablet 4 times daily 9 Active clindamycin (CLEOCIN) 300 mg capsule TK 1 C PO Q 8 H 0 9 Active HYDROcodone-aceta minophen (NORCO) 7.5-325 mg per tablet 1 Active acetaminophen (TYLENOL) 500 mg tablet Take 1 tablet (500 mg total) by mouth every 6 (six) hours as needed for pain for up to 15 doses Do not take more than 3 grams in 24 hours 15 tablet 1 Active traMADoL (ULTRAM) 50 mg tablet Take 1 tablet (50 mg total) by mouth every 6 (six) hours 5 tablet 3 Active Active Problems Problem Noted Date Diagnosed Date Anxiety 05/22/2019 Tobacco use disorder 05/22/2019 Actinic keratoses 03/05/2019 Lentigines 03/05/2019 Melanocytic nevi of trunk 03/05/2019 Neoplasm of uncertain behavior of skin 9 Acute hepatitis C virus infection without hepati c coma 05/30/2017 At high risk for falls 05/10/2017 Elbow mass 04/14/2017 Dissociative identity disorder 01/24/2017 Paranoid schizophrenia 01/24/2017 Moderate persistent asthma 05/21/2016 Nicotine dependence, unspecified, uncomplicated 05/21/2016 Severe persistent asthma, uncomplicated 05/21/20 16 Allergic rhinitis 05/18/2016 Essential hypertension 05/18/2016 Acute severe exacerbation of severe persistent a sthma 04/25/2016 COPD (chronic obstructive pu lmonary disease) with acute bronchitis 04/25/2016 Overview (03/05/2019): Concerns about concomitant asthma/COPD overlap syndrome due to ongoing tobacco abuse. Patient has severe obstructive lung disease based on PFT. Clinically stable continue current treatment. Oral thrush 04/25/2016 Smoking greater than 25 pack years 04/25/2016 Elevated liver enzymes 02/02/2016 Chronic lumbar pain 10/26/2015 GERD (gastroesophageal reflux disease) 5 Neuropathy 10/26/2015 Asthma 11/29/2012 Surgical History Surgery Date Site/Laterality Comments HAND SURGERY Social History Tobacco Use Types Packs/Day Years Used Date Smoking Tobacco: Every Day Smokeless Tobacco: Current Alcohol Use Standard Drinks/Week Comments Yes 0 (1 standard drink = 0.6 oz pur e alcohol) Personal Safety Answer Date Recorded Getting School Help Needed Not on file 01/28 Sex and Gender Information Value Date Recorded Sex Assigned at Not on file 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 Gender Identity Not on file Sexual Orientation Not on file Obstetrics History Last Filed Vital Signs Vital Sign Reading Time Taken Comments Blood Pressure 148/91 01/16/2023 6:22 PM CDT Pulse 83 01/16/2023 6:22 PM CDT Temperature 36.9 C (98.5 F) 01/16/2023 6:22 PM CDT Respiratory Rate 19 01/16/2023 6:22 PM CDT Oxygen Saturation 97% 01/16/2023 6:22 PM CDT Inhaled Oxygen Concentration - - Weight 72.6 kg (160 lb) 01/16/2023 6:22 PM CDT Height 170.2 cm (5' 7) 01/16/2023 6:22 PM CDT Body Mass Index 25.06 01/16/2023 6:22 PM CDT Plan of Treatment Health Maintenance Due Date Last Done Comments Colon Cancer Screening-Colonoscopy 1970 Depression Screening 1970 Prostate Cancer Screening-PSA 1970 Hepatitis B Screening 1988 Regular Well Visit/Exam 18-64 1988 Pneumococcal vaccine <65 (2 of 2 - PCV) 07/22/2016 07/22/2015, 11/04/2014 Zoster Vaccine (1 of 2) 2020 Influenza Vaccine (#1) 2025 3, 02/01/2019, 09/18/2017, Additional history exists DTaP/Tdap/Td Vaccine (2 - Td or Tdap) 06/23/2028 06/23/2018 Hepatitis C Screening Completed 01/30/2019 , 01/30/2019, 11/04/2017, Additional history exists Procedures Procedure Name Priority Date/Time Associated Diagnosis Comments HEPATITIS C ANTIBODY Routine 01/30/2019 7:36 AM CDT from Last 3 Months or Most Recently Relevant to Health Maintenance Results * (ABNORMAL) Hepatitis C antibody (01/30/2019 7:36 AM CDT) Hep C Ab REACTIVE( A) NONREACTIVE [facility] Comment: Sample to be confirmed by HCV quantitative NAAT. [employer] using MELITON (chemiluminescent immunoassay) technology. NONREACTIVE: Antibodies to Hepatitis C not detected. This does not exclude early acute Hepatitis C infection, possibility of exposure to Hepatitis C, antibodies below detection limit, or to lack of antibody reactivity to the antigen used in this assay. EQUIVOCAL: Antibodies to Hepatitis C may or may not be present. Sample to be confirmed by real-time PCR method. REACTIVE: Antibodies to Hepatitis C detected.Sample to be confirmed by real-time PCR method. 01/30/2019 7:36 AM CDT 01/30/2019 7:51 AM CDT Narrative Resulting Agency Comment IN Gomez Beckwith MD LAB MICROBIOLOGY - [facility] ORDERABLES Final Result [facility] [address] [place] [address], [facility] [phone] from Last 3 Months or Most Recently Relevant to Health Maintenance [place] [address] [facility] [address] [employer] [address] [place] [address] [facility] Care Teams Retail Aide Relationship Specialty Start Date End Date Gina Corbin NP PCP - General Nephrology 01/16/23
--- OUTSIDE RECORDS SUMMARY | 2025-06-27 08:05 | XMS_ITS | Encounter Summary ---
Author Organization [facility] Facility Care Team Providers Care Missionary Coordinator Name Role Phone Eren Greenwood DO Primary Care Provider Henrietta, Physician Primary Care Provider [phone] Gina Corbin FIELD RADIO OPERATOR Primary Care Provider [phone] Encounter Details Date Type Department Care Team (Latest Contact Info) Description 07/16/2017 Orders Only [facility] CLINCONV ProviderTerry MD [address] [place] [address] Social History Tobacco Use Types Packs/Day Years Used Date Smoking Tobacco: Never Assessed Sex and Gender Information Value Date Recorded Sex Assigned at Not on file 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 Historical Provider Final Res ult documented in this encounter Visit Diagnoses Not on filedocumented in this encounter Care Teams Missionary Coordinator Relationship Specialty Start Date End Date Eren Greenwood DO PCP - General 01/29/19 07/13/21 No, Physician PCP - General 07/14/21 01/15/23 Gina Corbin NP PCP - General Nephrology 01/16/23 documented as of this encounter
--- OUTSIDE RECORDS SUMMARY | 2025-06-27 08:05 | XMS_ITS | Clinical Summary ---
Author Organization [facility] Address [address] [place] [address] Care Team Providers Care Bulk Tank Driver Name Role Phone Katie Swain APRN-AZURE ARCHITECT Primary Care Provider [phone] Source Comments [facility],non-owned Affiliates and Associated Physician Practices is amultiple site organization consisting of ambulatory clinics and hospital sitesin [place], [place], [place] and [place]. This disclosure is being madepursuant to the Care Everywhere program and may not contain all information available regarding this patient. Last updated 18.[facility] Allergies Active Allergy Reactions Criticality Noted Date Comments Measles & Rubella Vaccines Other 9 Patient was told by his mother he can never have this. Unknown reaction in family member. Medications * This document contains information received from the source organization and may not represent a complete record from that organization. * Be aware that medications may not be up to date on this document. Alwaysverify current medications with the patient. albuterol HFA (VENTOLIN HFA) 108 (90 BASE) MCG/ACT inhaler Inhale 2 Puffs by mouth every 6 hours as needed Active montelukast (SINGULAIR) 10 MG tablet Take 10 mg by mouth at bedtime Active QUEtiapine (SEROQUEL) 25 MG tablet Take 25 mg by mouth 2 times daily Active raNITIdine (ZANTAC) 150 MG tablet Take 150 mg by mouth once daily Active QUEtiapine (SEROQUEL) 100 MG tablet Take 50 mg by mouth at bedtime Active Budesonide-Form oterol Fumarate (SYMBICORT IN) Inhale by mouth 2 times daily Active multivitamin daily tablet Take 1 (one) tablet by mouth daily with food Active hydrOXYzine HCl (Atarax) 25 MG tablet Take 1 (one) tablet by mouth 3 times daily as needed Active acetaminophen (Tylenol) 325 MG tablet Take 2 (two) tablets by mouth every 6 hours as needed for Fever or Pain Maximum allowable Acetaminophen amount = 4 Grams (4000 mg) / 24 hours. 30 tablet 3 Active ibuprofen (Motrin) 600 MG tablet Take 1 (one) tablet by mouth every 6 hours as needed for Pain 30 tablet 3 Active HYDROcodone-farideh taminophen (Recluse) 5-325 MG tabletIndicatio ns:Chest pain, unspecified type,Closed fracture of multiple ribs of right side, initial encounter,Traum atic pneumothorax, initial encounter Take 1 (one) tablet by mouth every 6 hours as needed for Pain 12 tablet 3 Active Active Problems Problem Noted Date Diagnosed Date Gallstones 01/13/2023 Alcohol use, unspecified wit h unspecified alcohol-induced disorder 01/13/2023 Cellulitis of right upper extremity 01/10/2023 Actinic keratoses 03/05/2019 Neoplasm of uncertain behavior of skin 9 Melanocytic nevi of trunk 03/05/2019 Lentigines 03/05/2019 Elevated liver enzymes 08/15/2018 Essential hypertension 08/15/2018 Asthma 08/15/2018 COPD (chronic obstructive pulmonary disease) GERD (gastroesophageal reflux disease) 8 Chronic hepatitis C without hepatic coma 018 Neuropathy 08/15/2018 Schizophrenia 08/15/2018 Elbow mass 04/14/2017 HCV (hepatitis C virus) Anxiety Dissociative identity disorder Tobacco use disorder Chronic obstructive pulmonary disease (COPD) Immunizations Immunization Administration Dates Next Due FLU VACCINE TRI IIV3 SPLIT I M (FLUVIRIN) 11/26/2014 INFLUENZA VACCINE, QUADR. (A FLURIA, FLUZONE QUADRIVALENT; 6MO+) (IIV4) 11/29/2022,07/22/2015 INFLUENZA VACCINE, QUADR. (F LUZONE; FLULAVAL; FLUARIX; AFLURIA QUADRIVALENT; 6MO+), 0.5 ML (IIV4) 11/29/2022,02/01/2019,09/18/2017,2015 PNEUMOCOCCAL PPV VACCINE 07/22/2015 TDAP, HISTORIC VACCINE 06/23/2018 Family History Medical History Relation Name Comments Asthma Brother Other Brother TB infection CAD (Coronary Artery Disease) Mother COPD - Chronic Obstructive Pulmonary Disease Mother Diabetes - Type 2 Mother Hypertension Mother Relation Name Status Comments Brother Father Doesn't know Mother Social History Tobacco Use Types Packs/Day Years Used Date Smoking Tobacco: Every Day Cigarettes 1 35 Smokeless Tobacco: Never Tobacco Cessation:Ready to Q uit: No; Counseling Given: No Alcohol Use Standard Drinks/Week Comments Yes 6 (1 standard drink = 0.6 oz pur e alcohol) ocasionally AUDIT-C Answer Date Recorded Frequency of Alcohol Consumption Not on file 01/13/2023 Q2: How many drinks containi ng alcohol do you have on a typical day when you are drinking? 5 or 6 01/13/2023 Q3: How often do you have si x or more drinks on one occasion? Less than monthly 01/13/2023 Overall Financial Resource Strain (CARDIA) Answe r Date Recorded How hard is it for you to pa y for the very basics like food, housing, medical care, and heating? Very hard 01/13/2023 [facility] Occupat ional Health - Occupational Stress Questionnaire Answer Date Recorded Do you feel stress - tense, restless, nervous, or anxious, or unable to sleep at night because your mind is troubled all the time - these days? Very much 01/13/2023 Hunger Vital Sign Answer Date Recorded Within the past 12 months, y ou worried that your food would run out before you got the money to buy more. Often true 01/14/20 23 Within the past 12 months, t he food you bought just didn't last and you didn't have money to get more. Often true 01/13/2023 PRAPARE - Transportation Answer Date Re corded In the past 12 months, has l ack of transportation kept you from medical appointments or from getting medications? Yes 12/26 In the past 12 months, has l ack of transportation kept you from meetings, work, or from getting things needed for daily living? Yes 01/13/2023 Housing Stability Vital Sign Answer Goldy e Recorded In the last 12 months, was t here a time when you were not able to pay the mortgage or rent on time? Yes 01/13/2023 In the last 12 months, how many places have you lived? 0 01/13/2023 In the last 12 months, was t here a time when you did not have a steady place to sleep or slept in a chcf (including now)? Yes 01/13/2023 Sex and Gender Information Value Date Recorded Sex Assigned at Not on file Legal Sex Male 10:25 AM CDT Gender Identity Not on file Sexual Orientation Not on file Last Filed Vital Signs Vital Sign Reading Time Taken Comments Blood Pressure 134/82 02/25/2023 12:00 PM CDT Pulse 62 02/25/2023 12:00 PM CDT Temperature 36.4 C (97.5 F) 02/25/2023 7:10 AM CDT Respiratory Rate 11 02/25/2023 12:00 PM CDT Oxygen Saturation 100% 02/25/2023 12:00 PM CDT Inhaled Oxygen Concentration - - Weight 68 kg (150 lb) 02/25/2023 7:10 AM CDT Height 170.2 cm (5' 7) 02/25/2023 7:10 AM CDT Body Mass Index 23.49 02/25/2023 7:10 AM CDT Plan of Treatment Upcoming Encounters Date Type Department Care Team (Late st Contact Info) Description 09/27/2025 9:00 AM PAPIER MACHE MOLDER Office Visit [facility] [address] [place] [address] Fabiola Holbrook M, SOUND TECHNICIAN SUPERVISOR-AZURE ARCHITECT [address] DIV [place] [id number] Health Maintenance Due Date Last Done Comments COLOGUARD (AGES 45-75) - COLON CA SCREENING 1970 COLON MONITORING 1970 COLONOSCOPY - COLON CA SCREENING 1970 CT COLONOGRAPHY - COLON CA SCREENING 1970 Colorectal Cancer Screening 1970 FIT - COLON CA SCREENING 1970 FLEX SIG - COLON CA SCREENING 1970 HEPATITIS B VACCINE (1 of 3 - 19+ 3-dose series) 1989 PNEUMOCOCCAL VACCINE 50+ (2 of 2 - PCV) 07/22/2016 07/22/2015 LUNG CANCER SCREENING 2020 ZOSTER VACCINE (1 of 2) 2020 LIPID TESTING 01/14/2022 01/14/2017 COVID-19 VACCINE (1 - season) 2024 DEPRESSION SCREENING 10/28/2024 INFLUENZA VACCINE (#1) 2025 , 11/29/2022, 02/01/2019, Additional history exists DTAP/TDAP/TD VACCINES (2 - Td or Tdap) 06/23/2028 06/23/2018 HIV SCREENING Completed 01/13/2023 HEPATITIS C SCREENING Completed 01/15/2023 , 01/13/2023, 01/13/2023, Additional history exists HIB VACCINE Aged Out No longer eligi ble based on patient's age to complete this topic HPV VACCINE Aged Out No longer eligi ble based on patient's age to complete this topic MENINGOCOCCAL (Group B) VACCINE SHARED DECISION-MAKING Aged Out No longer eligible based on patient's age to complete this topic MENINGOCOCCAL GROUPS A/C/Y/W VACCINE Aged Out No longer eligible based on patient's age to complete this topic Procedures Procedure Name Priority Date/Time Associated Diagnosis Comments HEPATITIS C AB SCREEN RFLX NAAT QUANT Routine 01/13/2023 5:04 AM CDT HIV-1 HIV-2 ANTIBODY + HIV P24 AG PANEL Routine 01/13/2023 5:04 AM CDT from Last 3 Months or Most Recently Relevant to Health Maintenance Results * (ABNORMAL) HEPATITIS C AB SCREEN RFLX NAAT QUANT (01/13/2023 5:04 AM CDT) Hepatitis C Antibody Reactive( A) Non-react stephen 01/13/2023 11:01 AM CDT [facility] Comment:Serum for supplement al Hepatitis C quantitative RNA PCR testing will be reflexively sent out by the lab. Blood BLOOD SPECIMEN / Unknown Lab Venipuncture / Unknown 01/13/2023 5:04 AM CDT 01/13/2023 6:30 AM CDT Janette Borges MD LAB - CHEMISTRY ORDERABLES Final Result [facility] [address] [place] [address], [place] [phone] * HIV-1 HIV-2 ANTIBODY + HIV P24 AG PANEL (01/13/2023 5:04 AM CDT) HIV Antigen/Antibod y 1 & 2 Non-reacti ve Non-react stephen 01/13/2023 10:59 AM CDT [facility] Comment:No Laboratory eviden ce of HIV infection. Blood BLOOD SPECIMEN / Unknown Lab Venipuncture / Unknown 01/13/2023 5:04 AM CDT 01/13/2023 6:30 AM CDT Janette Borges MD LAB - CHEMISTRY ORDERABLES Final Result Performing Organization Address City/[facility]/ZIP Co de Phone Number [facility] [address] [place] [address], [place] [phone] from Last 3 Months or Most Recently Relevant to Health Maintenance Insurance [facility] [employer] [place] Advance Directives * Full Code (Latest Code Status on File) Date Activated Date Inactivated Comments 01/13/2023 2:29 AM 01/16/2023 2:26 PM Care Teams Bulk Tank Driver Relationship Specialty Start Date End Date Katie Swain APRN-AZURE ARCHITECT [place] [address] PCP - General 01/14/23
--- OUTSIDE RECORDS SUMMARY | 2025-06-27 08:05 | XMS_ITS | Encounter Summary ---
Author Organization [facility] Facility Care Team Providers Care Propulsion Generator Repairer Name Role Phone Eren Greenwood DO Primary Care Provider Henrietta, Physician Primary Care Provider [phone] Gina Corbin SOCCER COACH Primary Care Provider [phone] Encounter Details Date Type Department Care Team (Latest Contact Info) Description 02/07/2017 Orders Only [facility] CLINCONV ProviderTerry MD [address] [place] [address] Social History Tobacco Use Types Packs/Day Years Used Date Smoking Tobacco: Never Assessed Sex and Gender Information Value Date Recorded Sex Assigned at Not on file Legal Sex Male 7:00 PM LUMBER KILN OPERATOR Gender Identity Not on file Sexual Orientation Not on file documented as of this encounter Plan of Treatment Not on file documented as of this encounter Procedures Procedure Name Priority Date/Time Associated Diagnosis Comments PROCEDURE - RESULT 02/07/2017 12 :00 AM CDT documented in this encounter Results * PROCEDURE - RESULT (02/07/2017 12:00 AM CDT) Narrative 02/07/2017 12:00 AM CDT Ordered by an unspecified provider. Historical Provider Final Res ult documented in this encounter Visit Diagnoses Not on filedocumented in this encounter Care Teams Propulsion Generator Repairer Relationship Specialty Start Date End Date Eren Greenwood DO PCP - General 01/29/19 07/13/21 No, Physician PCP - General 07/14/21 01/15/23 Gina Corbin NP PCP - General Nephrology 01/16/23 documented as of this encounter
--- OUTSIDE RECORDS SUMMARY | 2025-06-27 08:05 | XMS_ITS | Encounter Summary ---
Author Organization [facility] Facility Care Team Providers Care Cotton Washer Name Role Phone Eren Greenwood DO Primary Care Provider Henrietta, Physician Primary Care Provider [phone] Gina Corbin BRACELET MAKER NOVELTY Primary Care Provider [phone] Encounter Details Date Type Department Care Team (Latest Contact Info) Description 07/11/2017 Orders Only [facility] CLINCONV ProviderTerry MD [address] [place] [address] Social History Tobacco Use Types Packs/Day Years Used Date Smoking Tobacco: Never Assessed Sex and Gender Information Value Date Recorded Sex Assigned at Not on file Legal Sex Male 7:00 PM SEQUINS STRINGER Gender Identity Not on file Sexual Orientation [...] on filedocumented in this encounter Care Teams Cotton Washer Relationship Specialty Start Date End Date Eren Greenwood DO PCP - General 01/29/19 07/13/21 No, Physician PCP - General 07/14/21 01/15/23 Gina Corbin NP PCP - General Nephrology 01/16/23 documented as of this encounter
--- OUTSIDE RECORDS SUMMARY | 2025-06-27 08:05 | XMS_ITS | Encounter Summary ---
Author Organization [facility] Facility Care Team Providers Care Spring Coiling Machine Setter Name Role Phone Eren Greenwood DO Primary Care Provider Henrietta, Physician Primary Care Provider [phone] Gina Corbin PROCUREMENT PROFESSIONAL Primary Care Provider [phone] Encounter Details Date Type Department Care Team (Latest Contact Info) Description 07/26/2017 Orders Only [facility] CLINCONV ProviderTerry MD [address] [place] [address] Social History Tobacco Use Types Packs/Day Years Used Date Smoking Tobacco: Never Assessed Sex and Gender Information Value Date Recorded Sex Assigned at Not on file Legal Sex Male 7:00 PM MOBILE QA TESTER Gender Identity Not on file Sexual Orientation Not on file documented as of this encounter Plan of Treatment Not on file documented as of this encounter Procedures Procedure Name Priority Date/Time Associated Diagnosis Comments SCAN - LABS 07/26/2017 12:00 AM CDT documented in this encounter Results * SCAN - LABS (07/26/2017 12:00 AM CDT) Narrative 07/26/2017 12:00 AM CDT Ordered by an unspecified provider. Historical Provider Final Res ult documented in this encounter Visit Diagnoses Not on filedocumented in this encounter Care Teams Spring Coiling Machine Setter Relationship Specialty Start Date End Date Eren Greenwood DO PCP - General 01/29/19 07/13/21 No, Physician PCP - General 07/14/21 01/15/23 Gina Corbin NP PCP - General Nephrology 01/16/23 documented as of this encounter
--- OUTSIDE RECORDS SUMMARY | 2025-06-27 08:05 | XMS_ITS | Encounter Summary ---
Author Organization [facility] Facility Care Team Providers Care School Operations Manager Name Role Phone Eren Greenwood DO Primary Care Provider Henrietta, Physician Primary Care Provider [phone] Gina Corbin GRAIN OPERATOR Primary Care Provider [phone] Encounter Details Date Type Department Care Team (Latest Contact Info) Description 02/06/2017 Orders Only [facility] CLINCONV ProviderTerry MD [address] [place] [address] Social History Tobacco Use Types Packs/Day Years Used Date Smoking Tobacco: Never Assessed Sex and Gender Information Value Date Recorded Sex Assigned at Not on file Legal Sex Male 7:00 PM SALES ORDER PROCESSOR Gender Identity Not on file Sexual Orientation Not on file documented as of this encounter Plan of Treatment Not on file documented as of this encounter Procedures Procedure Name Priority Date/Time Associated Diagnosis Comments PROCEDURE - RESULT 02/06/2017 12 :00 AM CDT documented in this encounter Results * PROCEDURE - RESULT (02/06/2017 12:00 AM CDT) Narrative 02/06/2017 12:00 AM CDT Ordered by an unspecified provider. Historical Provider Final Res ult documented in this encounter Visit Diagnoses Not on filedocumented in this encounter Care Teams School Operations Manager Relationship Specialty Start Date End Date Eren Greenwood DO PCP - General 01/29/19 07/13/21 No, Physician PCP - General 07/14/21 01/15/23 Gina Corbin NP PCP - General Nephrology 01/16/23 documented as of this encounter
[2025-06-27] MEDS: IPRATROPIUM BR 0.02% INH SOLN 0.5 MG/2.5 ML VIAL 1.5 MG INHALATION (08:20)
[2025-06-27] MEDS: ALBUTEROL SULFATE NEB 2.5 MG/3 ML INH 10 MG INHALATION (08:20)
--- NOTE | 2025-06-27 08:27 | ED.GENADULT ---
HPI - General Adult General Chief complaint: Shortness of Breath/Dyspnea Stated complaint: sob Time Seen by Provider: 06/27/25 08:12 History of Present Illness HPI narrative: 54-year-old male presented to the emergency department for evaluation worsening shortness of breath. Patient is a smoker and does have history of COPD. He was recently diagnosed with congestive heart failure but he was told by his primary care physician to stop taking his Lasix. Patient reports that he did relapse recently and had multiple recent days drinking and meth. Patient states that the shortness of breath has been ongoing for the last 1.5 months but did acutely worsened today. Patient arrives the emergency department complaining worsening shortness of breath and is in respiratory distress. Related Data Home Medications ?Medication ?Instructions ?Recorded ?Confirmed ?Last Taken ?Type albuterol sulfate 2.5 mg/3 mL 2.5 mg continuous nebulization QID 11/05/19 08/25/24 Unknown History (0.083 %) solution for nebulization fluticasone 232 mcg-salmeterol 14 2 inh inhalation BID 11/05/19 08/25/24 Unknown History mcg/actuation breath activated powdr montelukast 10 mg tablet 10 mg PO DAILY 11/05/19 08/25/24 Unknown History risperidone 0.25 mg tablet 2 mg PO HS 07/27/24 08/25/24 Unknown History risperidone 0.5 mg tablet 0.5 mg PO DAILY 07/27/24 08/25/24 Unknown History hydroxyzine HCl 50 mg tablet 50 mg PO BID 08/25/24 08/25/24 Unknown History Allergies Allergy/AdvReac Type Severity Reaction Status Date / Time bee venom protein (honey Allergy Difficulty Verified 07/27/24 11:28 bee) (bees) Breathing milk Allergy Difficulty Verified 07/27/24 11:28 Breathing peanut Allergy Difficulty Verified 07/27/24 11:28 Breathing poison dinah extract Allergy Difficulty Verified 07/27/24 11:28 Breathing Review of Systems Review of Systems: All systems reviewed & are unremarkable except as noted in HPI and below PMFSH Past Medical History Medical History Asthma Bilateral ankle fractures COPD (chronic obstructive pulmonary disease) Depression Fracture of lumbar vertebra GERD (gastroesophageal reflux disease) H/O retained foreign body fully removed Hepatitis C Hernia HTN (hypertension) Paranoid schizophrenia Peripheral neuropathy Previous known suicide attempt Surgical History Surgical History History of surgery on arm Right hand Family History Family History Mother Heart disease Acute myocardial infarction Kidney failure Emphysema lung Social History Social History Social History: He continues to smoke 1 pack a cigarettes per day. no alcohol. Occasional marijuana . He currently lives in of hot . He is single and has twin daughters. Code status full code Smoking packs per day: 1 Smoking cigarettes per day: 20.0 Smoking status: Current every day smoker Tobacco type: cigarettes Alcohol intake: never Substance use: former Substance use type: marijuana Last use: 1 year Lack of Transportation: YES Lack of Food: Often True Current Housing: I Do Not Have Housing Concerned About Future Housing: YES Difficulty Paying Gas/Electric Bills: YES Difficulty Paying for Meds: YES Currently Unemployed: YES Education: Decline to Answer Difficulty w/ Childcare or Family Care: No Living arrangements: other Gender identity (if verbalized by the patient): Male Spiritual care concerns: No Exam Narrative: APPEARANCE: Distressed appearing secondary to respiratory status HEAD: normocephalic, atraumatic. EYES: PERRLA/EOMI, conjunctivae clear. NOSE: Normal no drainage EARS:TMS clear with good light reflex. THROAT: Pharynx clear, no exudate. NECK: Supple. No adenopathy, no masses. RESPIRATORY: Coughing and expiratory wheeze CARDIOVASCULAR: Regular rate and rhythm without murmurs rubs or gallops. ABDOMINAL: Soft, nontender, nondistended, normal bowel sounds MUSCULOSKELETAL: Moves all extremities. Strength/ROM intact, No edema, No calf tenderness. NEURO: Alert. Cranial nerves II through XII intact. Good gait. Good coordination SKIN: Warm, dry. Normal Color Course Vital Signs Vital signs: Vital Signs Temperature 98.0 F 06/27/25 08:08 Pulse Rate 91 06/27/25 08:08 Respiratory Rate 32 H 06/27/25 08:08 Blood Pressure 162/97 H 06/27/25 08:08 Pulse Oximetry 99 06/27/25 08:08 Oxygen Delivery Room Air 06/27/25 08:08 Temperature 98.0 F 06/27/25 08:08 Pulse Rate 88 06/27/25 11:26 Respiratory Rate 20 06/27/25 11:26 Blood Pressure 141/86 H 06/27/25 11:26 Pulse Oximetry 100 06/27/25 11:26 Oxygen Delivery Nasal Cannula 06/27/25 08:26 Oxygen Flow Rate 2 06/27/25 08:26 Medical Decision Making MDM Narrative Medical decision making narrative: [age] old male with history of COPD presenting emergency department for evaluation worse or distress. Patient was treated with a 1 hour nebulized albuterol treatment. Even before the patient was finished with that treatment on re-evaluation he reports he feels improved and patient is in no distress on re-evaluation. Patient is currently afebrile with no leukocytosis hemoglobin of 13.7. INR of 1.0. Patient's pCO2 on his ABG was 53 with a normal pH. Patient is alert and orientated is baseline. No acute abnormalities on the patient's CMP. Patient does have a negative troponin and a proBNP of 660. I did discuss admission for the patient for possible pneumonia and COPD exacerbation but patient strongly prefers to be discharged home. Patient will be started on azithromycin and Augmentin along with prednisone. Patient was also provided albuterol inhaler. All questions concerns were addressed patient was encouraged to return to the emergency department if you have any worsening symptoms. Patient was well-appearing at time of discharge. Differential Diagnosis Differential Diagnosis: Pneumonia, pneumothorax, pulmonary embolism, COPD, asthma Vital Signs Vital Signs: Vital Signs Temperature 98.0 F 06/27/25 08:08 Pulse Rate 91 06/27/25 08:08 Respiratory Rate 32 H 06/27/25 08:08 Blood Pressure 162/97 H 06/27/25 08:08 Pulse Oximetry 99 06/27/25 08:08 Oxygen Delivery Room Air 06/27/25 08:08 Temperature 98.0 F 06/27/25 08:08 Pulse Rate 88 06/27/25 11:26 Respiratory Rate 20 06/27/25 11:26 Blood Pressure 141/86 H 06/27/25 11:26 Pulse Oximetry 100 06/27/25 11:26 Oxygen Delivery Nasal Cannula 06/27/25 08:26 Oxygen Flow Rate 2 06/27/25 08:26 Lab Data Lab results reviewed: Yes I reviewed the patient's lab results. 06/27/25 08:21 06/27/25 08:21 Labs: Lab Results 06/27/25 06/27/25 06/27/25 Range/Units 08:21 08:26 09:29 WBC 7.1 (4.5-10.0) K/mm3 RBC 4.42 L (4.6-6.20) M/mm3 Hgb 13.7 L D (14.0-18.0) g/dL Hct 41.4 L (42.0-52.0) % MCV 93.7 (80-100) fl MCH 31.0 (26-34) pg MCHC 33.1 (32-36) g/dl RDW 12.3 (11.5-14.5) % Plt Count 217 (150-375) k/mm3 MPV 9.2 (7.4-10.4) fl Immature Gran % (Auto) 0.6 H (0-0.5) % Neut % (Auto) 69.9 (45.5-73.1) % Lymph % (Auto) 15.4 L (18.3-44.2) % [place] % (Auto) 8.3 (2.6-8.5) % Eos % (Auto) 5.2 H (0-4.4) % Baso % (Auto) 0.6 (0.2-1.2) % Lymph # (Auto) 1.09 (0.9-3.2) K/mm3 [place] # (Auto) 0.6 (0.1-0.6) K/mm3 Eos # (Auto) 0.4 H (0-0.3) K/mm3 Baso # (Auto) 0.0 (0.0-0.1) K/mm3 Abs Immat Gran (auto) 0.04 H (0.00-0.031) K/mm3 Absolute Neuts (auto) 5.0 (1.3-6.7) K/mm3 Absolute Nucleated RBC 0.000 (0.0-0.012) K/mm3 Nucleated RBC % 0.0 (0.0-0.2) % PT 13.1 (11.1-14.7) Seconds INR 1.0 APTT 29.0 (22.3-36.8) Seconds Methemoglobin 0.2 (0-1.5) %THb Sodium 138 (137-145) mmol/L Potassium 4.0 (3.4-5.0) mmol/L Chloride 103 (98-107) mmol/L Carbon Dioxide 28 (22-30) mmol/L Anion Gap 7 (4-12) mmol/L BUN 9 (9-20) mg/dL Creatinine 0.64 L (0.7-1.3) mg/dL Estim Creat Clear Calc 105 ml/min Estimated GFR > 60 (59 - ) Glucose 151 H (65-110) mg/dL Calcium 8.6 (8.4-10.2) mg/dL Total Bilirubin 0.6 (0.2-1.3) mg/dL AST 57 (17-59) U/L ALT 69 H (6-50) U/L Alkaline Phosphatase 102 (38-126) U/L Troponin I < 0.012 (0.000-0.034) ng/mL NT-Pro-B Natriuret Pep 660 H (19.9-100) pg/mL Total Protein 7.1 (6.3-8.2) g/dL Albumin 3.8 (3.5-5.1) g/dL Urine Opiates Screen Negative (Negative) Urine Methadone Screen Negative (Negative) Ur Barbiturates Screen Negative (Negative) Ur Phencyclidine Scrn Negative (Negative) Ur Amphetamine Screen Positive A (Negative) U Benzodiazepines Scrn Negative (Negative) Urine Cocaine Screen Negative (Negative) U Cannabinoids Screen Negative (Negative) Ethyl Alcohol < 10 (<10) mg/dL ABG Data ABG results: 06/27/25 08:26 Puncture Site Left radial ABG pH 7.366 ABG pCO2 53.0 H ABG pO2 102.4 H ABG PO2/FiO2 Ratio 3.66 ABG HCO3 29.7 H ABG O2 Saturation 97.4 ABG O2 Content 20.1 ABG Base Excess 3.1 A-a Gradient 34.7 Oxyhemoglobin 97.0 Carboxyhemoglobin 0.6 Reduced Hemoglobin 2.2 Total Hemoglobin 14.7 O2 Delivery Device Nasal cannula O2 Liters/Min 2.0 FiO2 28 Imaging Data Radiologist's impression: Impressions Chest X-Ray 06/27/25 11:14 IMPRESSION: 1: NO ACUTE CARDIOPULMONARY DISEASE. 2: Probable prominent left nipple shadow. Recommend follow-up upright PA view of the chest with nipple markers. Discharge Plan Discharge Clinical Impression: COPD (chronic obstructive pulmonary disease) Patient Disposition: Home Condition: Stable Instructions: Antibiotic Form, Constipation (DC), COPD (Chronic Obstructive Pulmonary Disease) (DC) Additional Instructions: Prednisone as directed for the next 5 days. Antibiotic as directed until completed. Have close follow-up with primary care physician. If you have any worsening symptoms then please call or return to the emergency department. Patient Language: Maltese Prescriptions: New azithromycin 250 mg tablet See Rx Instructions .ROUTE .COMPLEX Qty: 6 0RF Rx Instructions: For 250 mg dose pack: take 500 mg today (day 1), then 250 mg for 4 days (days 2-5) prednisone 50 mg tablet 50 mg PO DAILY 5 Days Qty: 5 0RF albuterol sulfate 90 mcg/actuation HFA aerosol inhaler 1 puff inhalation QID Qty: 6.7 0RF amoxicillin-pot clavulanate 875-125 mg tablet 1 tablet PO Q12H 7 Days Qty: 14 0RF polyethylene glycol 3350 [Miralax] 17 gram/dose powder 17 g PO DAILY Qty: 238 0RF No Action albuterol sulfate 90 mcg/actuation aero powdr breath act w/sensor 1 inhalation INHALATION Q4-6H PRN (Reason: shortness of breath or wheezing) Qty: 1 0RF albuterol sulfate 2.5 mg /3 mL (0.083 %) solution for nebulization 2.5 mg continuous nebulization QID montelukast 10 mg tablet 10 mg PO DAILY fluticasone propion-salmeterol 232-14 mcg/actuation aerosol powdr breath activated 2 inh INHALATION BID (DME) miscellaneous medical supply Misc See Rx Instructions .Route Qty: 1 0RF Rx Instructions: As directed risperidone 0.25 mg Tablet 2 mg PO HS risperidone 0.5 mg Tablet 0.5 mg PO DAILY hydroxyzine HCl 50 mg Tablet 50 mg PO BID Follow-up/Referrals: Veto,RAMON Hilton [Primary Care Provider, Unknown]
[2025-06-27 08:28] LABS: Hematocrit 41.4 % (42.0-52.0); Hemoglobin 13.7 g/dL (14.0-18.0); Immature Granulocyte Percent A 0.6 % (0-0.5); Lymphocytes Absolute Auto 1.09 K/mm3 (0.9-3.2); Mean Corpuscular HGB Conc 33.1 g/dl (32-36); Mean Corpuscular Hemoglobin 31.0 pg (26-34); Mean Corpuscular Volume 93.7 fl (80-100); Nucleated Red Blood Cells Absolute Auto 0.000 K/mm3 (0.0-0.012); Nucleated Red Blood Cells Perc 0.0 % (0.0-0.2); Platelet Count Result 217 k/mm3 (150-375); Red Blood Count 4.42 M/mm3 (4.6-6.20); White Blood Count 7.1 K/mm3 (4.5-10.0)
[2025-06-27 08:29] LABS: Alveolar/Arterial O2 Gradient 34.7 mmHg; Carboxyhemoglobin 0.6 % THb (0-2.0); Fractional Inspired Oxygen 28 %; HCO3 ABG 29.7 mEq/l (22.0-26.0); Methemoglobin ABG 0.2 %THb (0-1.5); Oxygen Content ABG 20.1 %vol (16.0-22.0); Oxygen Saturation ABG 97.4 % (95.0-100.0); PCO2 ABG 53.0 mmHg (35.0-45.0); PO2 ABG 102.4 mmHg (80.0-100.0); PO2 FiO2 Ratio Arterial Blood 3.66 %; Reduced Hemoglobin 2.2 %THb (0-5.0)
[2025-06-27 08:30] LABS: Liters per Minute 2.0 LPM; Modified Allen's Test Pass; Site Drawn LEFT RADIAL
[2025-06-27 08:37] LABS: Alanine Aminotransferase 69 U/L (6-50); Albumin Level 3.8 g/dL (3.5-5.1); Alkaline Phosphatase 102 U/L (38-126); Anion Gap 7 mmol/L (4-12); Aspartate Amino Transferase 57 U/L (17-59); Bilirubin,Total 0.6 mg/dL (0.2-1.3); Blood Urea Nitrogen 9 mg/dL (9-20); Calcium 8.6 mg/dL (8.4-10.2); Carbon Dioxide 28 mmol/L (22-30); Chloride 103 mmol/L (98-107); Estimated CRCL calculation 105 ml/min; Estimated Glomerular Filt Rate > 60; Glucose 151 mg/dL (65-110); Potassium 4.0 mmol/L (3.4-5.0); Sodium 138 mmol/L (137-145); Total Protein 7.1 g/dL (6.3-8.2)
[2025-06-27 08:42] LABS: INR 1.0; Partial Thromboplastin Time 29.0 Seconds (22.3-36.8); Prothrombin Time 13.1 Seconds (11.1-14.7)
--- OUTSIDE RECORDS SUMMARY | 2025-06-27 08:43 | XMS_ITS | Clinical Summary ---
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 PufettoaurXP using MELITON (chemiluminescent immunoassay) technology. NONREACTIVE: Antibodies [...] IN Gomez Beckwith MD LAB MICROBIOLOGY - [facility] ORDERABLES Final Result [facility] [address] [place] [address], [facility] [phone] from Last 3 Months or Most Recently Relevant to Health Maintenance [place] [address] [place] [address] [facility] [address] [employer] OF [employer] [address] [place] [address] [facility] Care Teams Dog Licenser Relationship Specialty Start Date End Date Gina Corbin NP PCP - General Nephrology 01/16/23
--- OUTSIDE RECORDS SUMMARY | 2025-06-27 08:43 | XMS_ITS | Encounter Summary ---
Author Organization 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
--- OUTSIDE RECORDS SUMMARY | 2025-06-27 08:43 | XMS_ITS | Encounter Summary ---
Author Organization [facility] Facility Care Team Providers Care Phonograph Mechanic Name Role Phone Eren Greenwood DO Primary Care Provider Henrietta, Physician Primary Care Provider [phone] Gina Corbin SECURITY SYSTEM ANALYST Primary Care Provider [phone] Encounter Details Date Type Department Care Team (Latest Contact Info) Description 07/16/2017 Orders Only [facility]G CLINCONV ProviderTerry MD [address] [place] [address] Social History Tobacco Use Types Packs/Day Years Used Date Smoking Tobacco: Never Assessed Sex and Gender Information Value Date Recorded Sex Assigned at Not on file 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
--- OUTSIDE RECORDS SUMMARY | 2025-06-27 08:43 | XMS_ITS | Encounter Summary ---
Author Organization [facility] Facility Care Team Providers Care Enterprise Business Architect Name Role Phone Eren Greenwood DO Primary Care Provider Henrietta, Physician Primary Care Provider [phone] Gina Corbin GIS SPECIALIST Primary Care Provider [phone] Encounter Details Date Type Department Care Team (Latest Contact Info) Description 02/06/2017 Orders Only MMG CLINCONV ProviderTerry MD [address] [place] [address] Social History Tobacco Use Types Packs/Day Years Used Date Smoking Tobacco: Never Assessed Sex and Gender Information Value Date Recorded Sex Assigned at Not on file 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
--- OUTSIDE RECORDS SUMMARY | 2025-06-27 08:43 | XMS_ITS | Encounter Summary ---
Author Organization [facility] Facility Care Team Providers Care Cotton Jammer Name Role Phone Eren Greenwood DO Primary Care Provider Henrietta, Physician Primary Care Provider [phone] Gina Corbin CONDITIONER TUMBLER OPERATOR Primary Care Provider [phone] Encounter Details Date Type Department Care Team (Latest Contact Info) Description 07/26/2017 Orders Only MMG CLINCONV ProviderTerry MD [address] [place] [address] Social History Tobacco Use Types Packs/Day Years Used Date Smoking Tobacco: Never Assessed Sex and Gender Information Value Date Recorded Sex Assigned at Not on file 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
--- OUTSIDE RECORDS SUMMARY | 2025-06-27 08:43 | XMS_ITS | Encounter Summary ---
Author Organization [facility] Facility Care Team Providers Care Slide Forming Machine Operator Name Role Phone Eren Greenwood DO Primary Care Provider Henrietta, Physician Primary Care Provider [phone] Gina Corbin WOOD DRILLING MACHINE OPERATOR Primary Care Provider [phone] Encounter Details Date Type Department Care Team (Latest Contact Info) Description 02/07/2017 Orders Only MMG CLINCONV ProviderTerry MD [address] [place] [address] Social History Tobacco Use Types Packs/Day Years Used Date Smoking Tobacco: Never Assessed Sex and Gender Information Value Date Recorded Sex Assigned at Not on file Legal Sex Male 7:00 PM NUCLEAR REACTOR ENGINEER Gender Identity Not on file Sexual Orientation [...] on filedocumented in this encounter Care Teams Slide Forming Machine Operator Relationship Specialty Start Date End Date Eren Greenwood DO PCP - General 01/29/19 07/13/21 No, Physician PCP - General 07/14/21 01/15/23 Gina Corbin NP PCP - General Nephrology 01/16/23 documented as of this encounter
--- OUTSIDE RECORDS SUMMARY | 2025-06-27 08:43 | XMS_ITS | Clinical Summary ---
Author Organization [facility] Address [address] [place] [address] Care Team Providers Care Procurement Clerk Name Role Phone Katie Swain APRN-FIREFIGHTER Primary Care Provider [phone] Source Comments [facility],non-owned Affiliates and Associated Physician Practices is amultiple site organization consisting of ambulatory clinics and hospital sitesin [place], [place], [place] and [place]. This disclosure is being madepursuant to the Care Everywhere program and may not contain all information available regarding this patient. Last updated 18.[facility] Allergies Active Allergy Reactions Criticality Noted Date [...] Pain 30 tablet 3 Active HYDROcodone-farideh taminophen ([place]) 5-325 MG tabletIndicatio ns:Chest pain, unspecified type,Closed [...] medical care, and heating? Very hard 01/13/2023 [facility] [place] [facility] Occupat ional Health - Occupational Stress [...] place to sleep or slept in a alf (including now)? Yes 01/13/2023 Sex and Gender [...] st Contact Info) Description 09/27/2025 9:00 AM MINE CAR MECHANIC Office Visit [facility] [address] [place] [address] Fabiola Holbrook M, KINESEOLOGIST-FIREFIGHTER [address] [place] [id number] Health Maintenance Due Date Last Done Comments [...] A) Non-react stephen 01/13/2023 11:01 AM CDT [facility] Comment:Serum for supplement al Hepatitis C quantitative RNA PCR testing will be reflexively sent out by the lab. Blood BLOOD SPECIMEN / Unknown Lab Venipuncture / Unknown 01/13/2023 5:04 AM CDT 01/13/2023 6:30 AM CDT Janette Borges MD LAB - CHEMISTRY ORDERABLES Final Result [facility] [address] [place] [address], [place] [phone] * HIV-1 HIV-2 ANTIBODY + HIV P24 AG PANEL (01/13/2023 5:04 AM CDT) HIV Antigen/Antibod y 1 & 2 Non-reacti ve Non-react stephen 01/13/2023 10:59 AM CDT [facility] Comment:No Laboratory eviden ce of HIV infection. Blood BLOOD SPECIMEN / Unknown Lab Venipuncture / Unknown 01/13/2023 5:04 AM CDT 01/13/2023 6:30 AM CDT Janette Borges MD LAB - CHEMISTRY ORDERABLES Final Result Performing Organization Address City/[facility]/ZIP Co de Phone Number [facility] [address] [place] [address], [place] [phone] from Last 3 Months or Most Recently Relevant to Health Maintenance Insurance [facility] [employer] [place] Advance Directives * Full Code (Latest Code Status on File) Date Activated Date Inactivated Comments 01/13/2023 2:29 AM 01/16/2023 2:26 PM Care Teams Procurement Clerk Relationship Specialty Start Date End Date Katie Swain APRN-FIREFIGHTER [place] [address] PCP - General 01/14/23
[2025-06-27 08:49] LABS: NT Pro B Type Natriuretic Pept 660 pg/mL (19.9-100); Troponin I < 0.012 ng/mL (0.000-0.034)
--- NOTE | 2025-06-27 08:54 | PC.NURSE ---
Pt states he is unable to urinate at this time. urinal left on side of bed for pt
[2025-06-27 09:59] LABS: Cannabinoid Screen Urine Negative (Negative)
[2025-06-27] MEDS: ACETAMINOPHEN 325 MG TABLET 650 MG PO (11:24)
[2025-06-27] MEDS: AZITHROMYCIN 250 MG TABLET 500 MG PO (11:25)
== END 2025-06-27 11:39 | disposition home or self-care (01) ==
PROVIDERS: Emergency Provider Emergency Medicine; PCP Nurse Practitioner Family
DX: J44.9 Chronic obstructive pulmonary disease, unspecified (principal); I11.0 Hypertensive heart disease with heart failure; I50.9 Heart failure, unspecified; F17.210 Nicotine dependence, cigarettes, uncomplicated; F12.90 Cannabis use, unspecified, uncomplicated
CPT/HCPCS: 36415; 36600; 71045; 80053; 80307; 82077; 82375; 82805; 83050; 83880; 84484; 85018; 85025; 85610; 85730; 93005; 94640; 99284; A9270